=== PATIENT | male | born 1950 | race Caucasian/White ===

== ENCOUNTER 2020-01-14 08:52 | Emergency (ER) | payer MEDICARE ==
[2020-01-14] MEDS ORDERED: TETRACAINE HCL 0.5% 4ML OPTH ONE (09:22)
[2020-01-14] MEDS ORDERED: FLUORESCEIN SODIUM 1 MG/WRAP ONE (09:22)
--- NOTE | 2020-01-14 09:24 | ER ---
Nurse's Notes [facility] Name: Tam Randle Age: 69 yrs Sex: Male : 1950 Arrival Date: 01/14/2020 Time: 08:54 Bed 6 Private MD: Diagnosis: Injury of conjunctiva and corneal abrasion without foreign body, right eye-abrasion Presentation: 01/13 09:07 Chief complaint: Patient states: feels like there is something in his right eye, woke iw up feeling it. Coronavirus screen: At this time, the client does not indicate any symptoms associated with coronavirus-19. Ebola Screen: Patient negative for fever greater than or equal to 101.5 degrees Fahrenheit, and additional compatible Ebola Virus Disease symptoms Patient denies exposure to infectious person. Patient denies travel to an Ebola-affected area in the 21 days before illness onset. No symptoms or risks identified at this time. Initial Sepsis Screen: Does the patient meet any 2 criteria? No. Patient's initial sepsis screen is negative. Does the patient have a suspected source of infection? No. Patient's initial sepsis screen is negative. Risk Assessment: Do you want to hurt yourself or someone else? Patient reports no desire to harm self or others. Onset of symptoms was January 14, 2020. 09:07 Method Of Arrival: Ambulatory iw 09:07 Acuity: DRE 4 iw Historical: - Allergies: 09:09 No Known Allergies; iw - PMHx: 09:09 Hypertension; iw - PSHx: 09:09 None; iw - Immunization history:: Last tetanus immunization: up to date. - Social history:: Smoking status: Patient/guardian denies using tobacco, but has a distant history of tobacco abuse. Screenin:12 Abuse screen: Denies threats or abuse. Nutritional screening: No deficits noted. tw2 Tuberculosis screening: No symptoms or risk factors identified. Fall Risk None identified. Assessment: 09:12 General: Appears in no apparent distress. slender, well groomed, Behavior is calm, tw2 cooperative, appropriate for age. Neuro: Level of Consciousness is awake, alert, obeys commands, Oriented to person, place, time, situation. Cardiovascular: Patient's skin is warm and dry. Respiratory: Airway is patent Respiratory pattern is regular, symmetrical. EENT: Eyes are tearing on outer aspect of conjuctiva of right eye, iris of right eye and inner aspect of conjuctiva of right eye redness noted to RIGHT eye. Musculoskeletal: Range of motion: intact in all extremities. Vital Signs: 09:07 BP 158 / 83; Pulse 57; Resp 16; Temp 97.9; Pulse Ox 100% on R/A; Weight 68.95 kg; iw Height 5 ft. 11 in. (180.34 cm); 09:07 Body Mass Index 21.20 (68.95 kg, 180.34 cm) iw ED Course: 08:54 Patient arrived in ED. as 09:05 [facility] kb 09:05 Dena Shetty MD is Attending Physician. kb 09:05 Bed in low position. Call light in reach. Pulse ox on. NIBP on. tw2 09:09 Triage completed. iw 09:09 Arm band placed on. iw 09:14 Sana Sneed, ALEXUS is Primary Nurse. tw2 09:31 No provider procedures requiring assistance completed. Patient did not have IV access tw2 during this emergency room visit. Administered Medications: 09:22 Drug: Tetracaine Drops 0.5 % 1 drops {Note: by trudi Corea.} Route: Ophthalmic; Site: tw2 right eye; 09:30 Drug: Polysporin Ointment 1 application Route: Ophthalmic; Site: right eye; tw2 Outcome: 09:24 Discharge ordered by MD. kb 09:31 Discharged to home ambulatory. tw2 09:31 Condition: stable 09:31 Discharge instructions given to patient, Instructed on discharge instructions, follow up and referral plans. Demonstrated understanding of instructions, follow-up care. 09:32 Patient left the ED. tw2 Signatures: Nahomy Ybarra FNP-C FNP-Ckb Martinez, Amelia as Williams, Irene, RN RN iw Sana Sened RN RN tw2
--- NOTE | 2020-01-14 09:24 | EDPHYS ---
Physician Documentation [facility] Name: Tam Randle Age: 69 yrs Sex: Male : 1950 Arrival Date: 01/14/2020 Time: 08:54 Bed 6 Private MD: ED Physician Dena Shetty HPI: 01/13 09:53 This 69 yrs old Male presents to ER via Ambulatory with complaints of Foreign kb Body In Eye. 09:53 The patient is experiencing foreign body sensation, The patient sustained None. to the kb right eye, caused by an unknown mechanism. Onset: The symptoms/episode began/occurred this morning. Duration: the symptoms are continuous. Aggravated by nothing. Alleviated by nothing. Associated signs and symptoms: Pertinent positives: None. Severity of symptoms: At their worst the symptoms were mild in the emergency department the symptoms are unchanged. The patient has not experienced similar symptoms in the past. The patient has not recently seen a physician. Pt reports he woke up this morning and felt like something was in his right eye. Denies splash or being around debris. Historical: - Allergies: 09:09 No Known Allergies; iw - PMHx: 09:09 Hypertension; iw - PSHx: 09:09 None; iw - Immunization history:: Last tetanus immunization: up to date. - Social history:: Smoking status: Patient/guardian denies using tobacco, but has a distant history of tobacco abuse. ROS: 09:51 Constitutional: Negative for fever, chills, and weight loss, Cardiovascular: Negative kb for chest pain, palpitations, and edema, Respiratory: Negative for shortness of breath, cough, wheezing, and pleuritic chest pain, Abdomen/GI: Negative for abdominal pain, nausea, vomiting, diarrhea, and constipation, MS/Extremity: Negative for injury and deformity, Skin: Negative for injury, rash, and discoloration, Neuro: Negative for headache, weakness, numbness, tingling, and seizure. 09:51 Eyes: Positive for foreign body sensation, of the iris of right eye. Exam: 09:51 Constitutional: This is a well developed, well nourished patient who is awake, alert, kb and in no acute distress. Head/Face: Normocephalic, atraumatic. Skin: Warm, dry with normal turgor. Normal color with no rashes, no lesions, and no evidence of cellulitis. MS/ Extremity: Pulses equal, no cyanosis. Neurovascular intact. Full, normal range of motion. Neuro: Awake and alert, GCS 15, oriented to person, place, time, and situation. Cranial nerves II-XII grossly intact. Motor strength 5/5 in all extremities. Sensory grossly intact. Cerebellar exam normal. Normal gait. 09:51 Eyes: Corneas: abrasion, that is small, on the right, at 7 o'clock, foreign body, is not appreciated, a fluorescein strip employed to appreciate the findings. 09:51 Respiratory: the patient does not display signs of respiratory distress, Respirations: normal. Vital Signs: 09:07 BP 158 / 83; Pulse 57; Resp 16; Temp 97.9; Pulse Ox 100% on R/A; Weight 68.95 kg; iw Height 5 ft. 11 in. (180.34 cm); 09:07 Body Mass Index 21.20 (68.95 kg, 180.34 cm) iw MDM: 09:05 Patient medically screened. kb 09:52 Data reviewed: vital signs, nurses notes. Data interpreted: Pulse oximetry: on room air kb is 100 %. Interpretation: normal. Counseling: I had a detailed discussion with the patient and/or guardian regarding: the historical points, exam findings, and any diagnostic results supporting the discharge/admit diagnosis, the need for outpatient follow up, an opthalmologist, to return to the emergency department if symptoms worsen or persist or if there are any questions or concerns that arise at home. 01/13 09:06 Order name: Eye Tray; Complete Time: 09:09 kb 01/13 09:06 Order name: Fluoresene Opth strip; Complete Time: 09:09 kb Administered Medications: 09:22 Drug: Tetracaine Drops 0.5 % 1 drops {Note: by gregory Corea.} Route: Ophthalmic; Site: tw2 right eye; 09:30 Drug: Polysporin Ointment 1 application Route: Ophthalmic; Site: right eye; tw2 Disposition: 18:34 Co-signature as Attending Physician, Dena Shetty MD. ma2 Disposition: 01/14/20 09:24 Discharged to Home. Impression: Injury of conjunctiva and corneal abrasion without foreign body, right eye - abrasion. - Condition is Stable. - Discharge Instructions: Corneal Abrasion, [id number]. - Medication Reconciliation Form, Thank You Letter, Antibiotic Education, Prescription Opioid Use form. - Follow up: Emergency Department; When: As needed; Reason: Worsening of condition. Follow up: Private Physician; When: 2 - 3 days; Reason: Recheck today's complaints, Continuance of care, Re-evaluation by your physician. Signatures: Nahomy Ybarra, GREGORY-C COMMERCIAL INTERIOR DESIGNER-Ckb Alcira Chavez RN RN iw Sana Sneed RN RN tw2 Dena Shetty MD MD ma2 Corrections: (The following items were deleted from the chart) 09:32 09:24 01/14/2020 09:24 Discharged to Home. Impression: Injury of conjunctiva and tw2 corneal abrasion without foreign body, right eye - abrasion. Condition is Stable. Forms are Medication Reconciliation Form, Thank You Letter, Antibiotic Education, Prescription Opioid Use. Follow up: Emergency Department; When: As needed; Reason: Worsening of condition. Follow up: Private Physician; When: 2 - 3 days; Reason: Recheck today's complaints, Continuance of care, Re-evaluation by your physician. kb
[2020-01-14] MEDS ORDERED: NEOMYCIN/BAC/POLY OPTH 3.5GM ONE (09:43)
== END 2020-01-14 09:32 | disposition home or self-care (01) ==
LOC: ER 08:52
DX: S05.01XA Injury of conjunctiva and corneal abrasion without foreign body, right eye, initial encounter (principal); I10 Essential (primary) hypertension
CPT/HCPCS: 99283

== ENCOUNTER 2020-01-17 12:07 | Emergency (ER) | payer MEDICARE ==
--- NOTE | 2020-01-17 13:20 | EDPHYS ---
Physician Documentation [facility] Name: Tam Randle Age: 69 yrs Sex: Male : 1950 Arrival Date: 01/17/2020 Time: 12:08 Bed 12 Private MD: ED Physician Lewis Gar HPI: 01/16 13:16 This 69 yrs old Male presents to ER via Ambulatory with complaints of Facial jmm Swelling. 13:16 The patient's rash thought to be caused by. Onset: The symptoms/episode began/occurred jmm gradually, 1 day(s) ago. Associated signs and symptoms: Pertinent positives: Pertinent negatives: swelling of lips, swelling of throat, swelling of tongue. This is a 69 year old male with a history of htn that presents to the ED with complaints of swelling to his right cheek beginning yesterday. Patient states he has similar episodes on the opposite side of the cheek that will normally drain and resolve. . Historical: - Allergies: 12:35 No Known Allergies; em - PMHx: 12:35 Hypertension; em - PSHx: 12:35 None; em - Immunization history:: Adult Immunizations up to date. - Social history:: Smoking status: Patient denies any tobacco usage or history of. ROS: 13:16 Constitutional: Negative for fever, chills, and weight loss, Cardiovascular: Negative jmm for chest pain, palpitations, and edema, Respiratory: Negative for shortness of breath, cough, wheezing, and pleuritic chest pain. 13:16 Skin: Positive for erythema. 13:16 All other systems are negative. Exam: 13:16 Constitutional: This is a well developed, well nourished patient who is awake, alert, jmm and in no acute distress. 13:16 Neck: Trachea midline, Supple Chest/axilla: Normal chest wall appearance and motion. Cardiovascular: Regular rate and rhythm. No edema appreciated Respiratory: Normal respirations, no respiratory distress appreciated Abdomen/GI: Non distended, soft Back: Normal ROM 13:16 Skin: General appearance color normal Neuro: Awake and alert, normal gait Psych: Behavior is normal, Mood is normal, Patient is cooperative and pleasant 13:16 Head/face: right cheek erythema noted, non fluctuant. 13:16 Skin: cellulitis, that is mild, on the right zygomatic area. Vital Signs: 12:33 BP 133 / 84; Pulse 70; Resp 18; Temp 98.1; Pulse Ox 98% ; Weight 69.4 kg; Height 5 ft. em 11 in. (180.34 cm); Pain 1/10; 12:33 Body Mass Index 21.34 (69.40 kg, 180.34 cm) em MDM: 13:10 Patient medically screened. [facility] 13:19 Data reviewed: vital signs, nurses notes. Counseling: I had a detailed discussion with holden the patient and/or guardian regarding: the historical points, exam findings, and any diagnostic results supporting the discharge/admit diagnosis, the need for outpatient follow up, to return to the emergency department if symptoms worsen or persist or if there are any questions or concerns that arise at home. ED course: Patient is alert and non toxic in appearance in the ED. No signs of sepsis. Normal VS. Patient will follow up with pcp in 3 days. Patient is otherwise given strict return precautions. patient understood and agrees with the plan of care. . Administered Medications: 13:37 Drug: Bactrim (160 mg-800 mg (DS) 1 tablet Route: PO; iw Disposition: 14:11 Co-signature as Attending Physician, Lewis Gar MD I agree with the assessment and kdr plan of care. Disposition: 01/17/20 13:20 Discharged to Home. Impression: Facial Cellulitis. - Condition is Stable. - Discharge Instructions: Cellulitis, Adult. - Prescriptions for Bactrim DS 800- 160 mg Oral Tablet - take 1 tablet by ORAL route every 12 hours for 10 days; 20 tablet. Doxycycline Hyclate 100 mg Oral Tablet - take 1 tablet by ORAL route every 12 hours; 20 tablet. - Medication Reconciliation Form, Thank You Letter, Antibiotic Education, Prescription Opioid Use form. - Follow up: Private Physician; When: 2 - 3 days; Reason: Recheck today's complaints, Continuance of care, Re-evaluation by your physician. Signatures: Lewis Gar MD MD kdr Mickail, Joel, PA PA jmm Munoz, Edgar, ALEXUS RN em Alcira Chavez RN RN iw Corrections: (The following items were deleted from the chart) 13:38 13:20 01/17/2020 13:20 Discharged to Home. Impression: Facial Cellulitis. Condition is iw Stable. Forms are Medication Reconciliation Form, Thank You Letter, Antibiotic Education, Prescription Opioid Use. Follow up: Private Physician; When: 2 - 3 days; Reason: Recheck today's complaints, Continuance of care, Re-evaluation by your physician. holden
--- NOTE | 2020-01-17 13:20 | ER ---
Nurse's Notes [facility] Name: Tam Randle Age: 69 yrs Sex: Male : 1950 Arrival Date: 01/17/2020 Time: 12:08 Bed 12 Private MD: Diagnosis: Facial Cellulitis Presentation: 01/16 12:33 Chief complaint: Patient states: right sided facial swelling that started yesterday, em redness and swelling noted to the right side of face, denies fever. Coronavirus screen: Client denies travel out of the [place] in the last 14 days. Ebola Screen: Patient negative for fever greater than or equal to 101.5 degrees Fahrenheit, and additional compatible Ebola Virus Disease symptoms Patient denies exposure to infectious person. Patient denies travel to an Ebola-affected area in the 21 days before illness onset. No symptoms or risks identified at this time. Initial Sepsis Screen: Does the patient meet any 2 criteria? No. Patient's initial sepsis screen is negative. Does the patient have a suspected source of infection? No. Patient's initial sepsis screen is negative. Risk Assessment: Do you want to hurt yourself or someone else? Patient reports no desire to harm self or others. Onset of symptoms was January 17, 2020. 12:33 Method Of Arrival: Ambulatory em 12:33 Acuity: DRE 4 em Triage Assessment: 13:30 General: Appears in no apparent distress. Behavior is calm, cooperative. iw Historical: - Allergies: 12:35 No Known Allergies; em - PMHx: 12:35 Hypertension; em - PSHx: 12:35 None; em - Immunization history:: Adult Immunizations up to date. - Social history:: Smoking status: Patient denies any tobacco usage or history of. Screenin:38 Abuse screen: Denies threats or abuse. Denies injuries from another. Nutritional iw screening: No deficits noted. Tuberculosis screening: No symptoms or risk factors identified. Fall Risk None identified. Assessment: 13:00 General: Appears in no apparent distress. Behavior is calm, cooperative. Pain: iw Complains of pain in right zygomatic area. Neuro: Level of Consciousness is awake, alert, obeys commands, Oriented to person, place, time, situation, Moves all extremities. Full function. Cardiovascular: Patient's skin is warm and dry. Respiratory: Respiratory effort is even, unlabored, Respiratory pattern is regular. Derm: Skin is healthy with good turgor. Musculoskeletal: Range of motion: intact in all extremities. Vital Signs: 12:33 BP 133 / 84; Pulse 70; Resp 18; Temp 98.1; Pulse Ox 98% ; Weight 69.4 kg; Height 5 ft. em 11 in. (180.34 cm); Pain 1/10; 12:33 Body Mass Index 21.34 (69.40 kg, 180.34 cm) em ED Course: 12:08 Patient arrived in ED. ag5 12:35 Triage completed. em 12:35 Arm band placed on. em 13:00 Patient has correct armband on for positive identification. iw 13:08 Ethan Wood PA is PHCP. [facility] 13:08 Lewis Gar MD is Attending Physician. [facility] 13:23 Alcira Chavez, RN is Primary Nurse. iw 13:37 No provider procedures requiring assistance completed. Patient did not have IV access iw during this emergency room visit. Administered Medications: 13:37 Drug: Bactrim (160 mg-800 mg (DS) 1 tablet Route: PO; iw Outcome: 13:20 Discharge ordered by . [facility] 13:37 Discharged to home ambulatory. iw 13:37 Condition: good 13:37 Discharge instructions given to patient, Instructed on discharge instructions, follow up and referral plans. medication usage, Demonstrated understanding of instructions, follow-up care, medications, Prescriptions given X 1. 13:38 Patient left the ED. iw Signatures: Ethan Wood PA PA Sheldon Carcamo RN RN Alcira Chavez RN RN Jignesh Jett ag5
[2020-01-17] MEDS ORDERED: SMZ./TMP. 800/160 MG TABLET ONE (13:42)
[2020-01-22 04:43] VITALS: BP 133/84; TEMP 98.1; O2SAT 98
== END 2020-01-17 13:38 | disposition home or self-care (01) ==
LOC: ER 12:07
DX: L03.211 Cellulitis of face (principal); I10 Essential (primary) hypertension
CPT/HCPCS: 99283

== ENCOUNTER 2023-01-20 20:11 | Emergency (ER) | payer MEDICARE ==
--- OUTSIDE RECORDS SUMMARY | 2023-01-20 20:15 | XMS REPORT | Continuity of Care Document ---
Author Name Unknown Address [address] [facility] [address] [place] [address] [facility] Address [address] [facility] [address] [place] [address] Care Team Providers Care Parts Back Counter Man Name Role Phone PCP, PATIENT DOES NOT HAVE A Primary Care Physic sage Unavailable JACKY CADET Attending Clinician Unavailable SAMANTA DIAS Attending Clinician UnavailFLAKITO Newotn Attending Clinician Unavail able Samanta Dias PA-C Attending Clinician [phone] Jacky Cadet PA-C Attending Clinician [phone] Leigh Ann BERRY MD, Lee R Attending Clinician [phone] GARY BELTRÁN III Attending Clinician Unaluis corey Doctor Unassigned, [place] Attending Clinician U Flakito Henderson Attending Clinician + [phone], [facility] Attending Clinician Unavailable GIACOMO COX Attending Clinician Unavail able Nurse, Adc Pob Immunization Attending Clinician Unavailable Giacomo Cox DO Attending Clinician [phone] REGGIE MOSQUEDA Attending Clinician Unavailable REGGIE MOSQUEDA Attending Clinician Unavailable [facility] Attending Clinician Unavailable KIMMIE NEWTON Attending Clinician Unavailable Reggie Mosqueda MD Attending Clinician [phone] Payers Payer Name Policy Type Policy Number Effective Date Expirati on Date Source [employer] MED[employer]AGE [id number] 2019 00:00:00 Problems Condition Name Condition Details Condition Category Status Onset Date Resolution Date Last Treatment Date Treating Clinician Comments Source Head and neck cancer Head and neck cancer Disease Active 2017-02 2-04 00:00: 00 [facility] Hemoptysis Hemoptysis Disease Active 08-24 00:00: 00 Overview: Formattin g of this note might be different from the original. Added automatic ally from request for surgery [id number] [facility] Allergies, Adverse Reactions, Alerts Allergy Name Allergy Type Status Severity Reaction(s) Onset Date Inactive Date Treating Clinician Comments Source NO KNOWN ALLERGIE S Drug Class Active [facility] Social History Social Habit Start Date Stop Date Quantity Comments Source History of tobacco use Chews Tobacco [facility] Alcohol intake 2022-05-03 00:00:00 2022-05-03 00:00:00 5 /d [facility] Exposure to SARS-CoV-2 (event) 2022-02-25 00:00:00 2022-03-07 09:19:00 Not sure [facility] Tobacco use and exposure 2021-08-17 00:00:00 2021-08-17 00:00:00 Smokeless tobacco non-user [facility] Cigarettes smoked current (pack per day) - Reported 2021-08-17 00:00:00 2021-08-17 00:00:00 [facility] Cigarette pack-years 2021-08-17 00:00:00 2021-08-17 00:00:00 [facility] Sex Assigned At 1950 00:00:00 1950 00:00:00 [facility] Smoking Status Start Date Stop Date Source Ex-smoker 2021-08-17 00:00:00 2021-08-17 00[facility]00[facility]00 [facility]ations Ordered Medication Name Filled Medication Name Start Date Stop Date Current Medication? Ordering Clinician Indication Dosage Frequency Signature (SIG) Comments Components Source aspirin 81 mg chewable tablet 03-01 10:04: 43 Yes 81mg Take 81 mg by mouth daily. [facility] foLIC acid 1 mg tablet 03-01 10:04: 43 Yes 2mg Take 2 mg by mouth daily. [facility] Levothyroxi ne 25 mcg capsule 03-01 10:04: 43 Yes 25ug Take 25 mcg by mouth in the morning. [facility] aspirin 81 mg chewable tablet 03-01 10:04: 43 Yes 81mg Take 81 mg by mouth daily. [facility] foLIC acid 1 mg tablet 03-01 10:04: 43 Yes 2mg Take 2 mg by mouth daily. [facility] Levothyroxi ne 25 mcg capsule 03-01 10:04: 43 Yes 25ug Take 25 mcg by mouth in the morning. [facility] aspirin 81 mg chewable tablet 03-01 10:04: 43 Yes 81mg Take 81 mg by mouth daily. [facility] foLIC acid 1 mg tablet 03-01 10:04: 43 Yes 2mg Take 2 mg by mouth daily. [facility] Levothyroxi ne 25 mcg capsule 03-01 10:04: 43 Yes 25ug Take 25 mcg by mouth in the morning. [facility] aspirin 81 mg chewable tablet 03-01 10:04: 43 Yes 81mg Take 81 mg by mouth daily. [facility] foLIC acid 1 mg tablet 03-01 10:04: 43 Yes 2mg Take 2 mg by mouth daily. [facility] Levothyroxi ne 25 mcg capsule 03-01 10:04: 43 Yes 25ug Take 25 mcg by mouth in the morning. [facility] aspirin 81 mg chewable tablet 03-01 10:04: 43 Yes 81mg Take 81 mg by mouth daily. [facility] foLIC acid 1 mg tablet 03-01 10:04: 43 Yes 2mg Take 2 mg by mouth daily. [facility] Levothyroxi ne 25 mcg capsule 03-01 10:04: 43 Yes 25ug Take 25 mcg by mouth in the morning. [facility] aspirin 81 mg chewable tablet 0 03-01 10:04: 43 Yes 81mg Take 81 mg by mouth daily. [facility] foLIC acid 1 mg tablet 03-01 10:04: 43 Yes 2mg Take 2 mg by mouth daily. [facility] Levothyroxi ne 25 mcg capsule 03-01 10:04: 43 Yes 25ug Take 25 mcg by mouth in the morning. [facility] aspirin 81 mg chewable tablet 0 03-01 10:04: 43 Yes 81mg Take 81 mg by mouth daily. [facility] foLIC acid 1 mg tablet 03-01 10:04: 43 Yes 2mg Take 2 mg by mouth daily. [facility] Levothyroxi ne 25 mcg capsule 03-01 10:04: 43 Yes 25ug Take 25 mcg by mouth in the morning. [facility] aspirin 81 mg chewable tablet 03-01 10:04: 43 Yes 81mg Take 81 mg by mouth daily. [facility] foLIC acid 1 mg tablet 03-01 10:04: 43 Yes 2mg Take 2 mg by mouth daily. [facility] Levothyroxi ne 25 mcg capsule 03-01 10:04: 43 Yes 25ug Take 25 mcg by mouth in the morning. [facility] aspirin 81 mg chewable tablet 0 10-19 08:41: 18 Yes 81mg Take 81 mg by mouth daily. [facility] foLIC acid 1 mg tablet 2021-0 10-19 08:41: 18 Yes 2mg Take 2 mg by mouth daily. [facility] aspirin 81 mg chewable tablet 2021-0 10-19 08:41: 18 Yes 81mg Take 81 mg by mouth daily. [facility] foLIC acid 1 mg tablet 2021-0 10-19 08:41: 18 Yes 2mg Take 2 mg by mouth daily. [facility] aspirin 81 mg chewable tablet 2021-0 10-19 08:41: 18 Yes 81mg Take 81 mg by mouth daily. [facility] foLIC acid 1 mg tablet 2021-0 10-19 08:41: 18 Yes 2mg Take 2 mg by mouth daily. [facility] telmisartan 20 mg tablet 2018-02 00:00: 00 Yes TK 1 T PO ONCE D [facility] telmisartan 20 mg tablet 2018-02 00:00: 00 Yes TK 1 T PO ONCE D [facility] telmisartan 20 mg tablet 2018-02 00:00: 00 Yes TK 1 T PO ONCE D [facility] telmisartan 20 mg tablet 2018-02 00:00: 00 Yes TK 1 T PO ONCE D [facility] telmisartan 20 mg tablet 2018-02 00:00: 00 Yes TK 1 T PO ONCE D [facility] telmisartan 20 mg tablet 2018-02 00:00: 00 Yes TK 1 T PO ONCE D [facility] telmisartan 20 mg tablet 2018-02 00:00: 00 Yes TK 1 T PO ONCE D [facility] telmisartan 20 mg tablet 2018-02 00:00: 00 Yes TK 1 T PO ONCE D [facility] telmisartan 20 mg tablet 2018-02 00:00: 00 Yes TK 1 T PO ONCE D [facility] telmisartan 20 mg tablet 2018-02 00:00: 00 Yes TK 1 T PO ONCE D [facility] telmisartan 20 mg tablet 2018-02 00:00: 00 Yes TK 1 T PO ONCE D [facility] Vital Signs Vital Name Observation Time Observation Value Comments S ourisaias Systolic blood pressure 2022-05-03 14:55:00 118 mm[Hg] [facility] Diastolic blood pressure 2022-05-03 14:55:00 73 mm[Hg] [facility] Heart rate 2022-05-03 14:55:00 70 /min [facility] Body height 2022-05-03 14:55:00 180.3 cm [facility] Body weight 2022-05-03 14:55:00 79.47 kg [facility] BMI 2022-05-03 14:55:00 24.44 kg/m2 [facility] Oxygen saturation in Arterial blood by Pulse oximetry 2022-05-03 14:55:00 98 /min [facility] Systolic blood pressure 2022-03-07 15:10:00 138 mm[Hg] [facility] Diastolic blood pressure 2022-03-07 15:10:00 75 mm[Hg] [facility] Heart rate 2022-03-07 15:10:00 66 /min [facility] Body temperature 2022-03-07 15:10:00 36 Anum [facility] Respiratory rate 2022-03-07 15:10:00 18 /min [facility] Body weight 2022-03-07 15:10:00 78.881 kg [facility] BMI 2022-03-07 15:10:00 24.25 kg/m2 [facility] Oxygen saturation in Arterial blood by Pulse oximetry 2022-03-07 15:10:00 100 /min [facility] Systolic blood pressure 2022-03-01 16:04:00 125 mm[Hg] [facility] Diastolic blood pressure 2022-03-01 16:04:00 71 mm[Hg] [facility] Heart rate 2022-03-01 16:04:00 77 /min [facility] Body temperature 2022-03-01 16:04:00 35.83 Anum [facility] Respiratory rate 2022-03-01 16:04:00 18 /min [facility] Body height 2022-03-01 16:04:00 180.3 cm [facility] Body weight 2022-03-01 16:04:00 79.198 kg [facility] BMI 2022-03-01 16:04:00 24.35 kg/m2 [facility] Oxygen saturation in Arterial blood by Pulse oximetry 2022-03-01 16:04:00 99 /min [facility] Systolic blood pressure 2021-10-19 13:40:00 123 mm[Hg] [facility] Diastolic blood pressure 2021-10-19 13:40:00 67 mm[Hg] [place] [facility] Heart rate 2021-10-19 13:40:00 79 /min [facility] Body temperature 2021-10-19 13:40:00 36.56 Anum [facility] Body height 2021-10-19 13:40:00 180.3 cm [facility] Body weight 2021-10-19 13:40:00 76.567 kg [facility] BMI 2021-10-19 13:40:00 23.54 kg/m2 [facility] Oxygen saturation in Arterial blood by Pulse oximetry 2021-10-19 13:40:00 99 /min [place] [facility] Procedures Procedure Date / Time Performed Performing Clinicia n Source [facility] 2022-05-03 00:00:00 Jacky Cadet [facility] CONSENT/REFUSAL FOR DIAGNOSIS AND TREATMENT 2022-03-07 15:07:46 Doctor Unassigned, [place] [facility] 2021-10-19 00:00:00 Jacky Cadet [facility] Encounters Start Date/Time End Date/Time Encounter Type Admission Type Attending Clinicians Care Facility Care Department Encounter ID Source 2022-11-29 10:00:00 2022-11-29 10:00:00 Outpatient JACKY LEONARD [facility] [id number] [facility] 2022-09-13 09:30:00 2022-09-13 09:30:00 Outpatient SAMANTA NELSON [facility] [id number] [facility] 2022-09-12 10:30:00 2022-09-12 10:30:00 Outpatient SAMANTA NELSON [facility] [id number] [facility] 2022-07-13 00:00:00 2022-07-13 00:00:00 Case Management Samanta Dias [facility] 1.2.840.114 350.1.13.10 4.2.7.2.686 [id number] [facility] 2022-05-03 10:45:00 2022-05-03 11:00:00 Office Visit Jacky Cadet [facility] 1.840.114 350.1.13.10 4.2.7.2.686 [id number] [facility] 2022-05-03 10:45:00 2022-05-03 10:45:00 Outpatient R JACKY CADET [facility] [id number] [facility] 2022-03-07 09:00:00 2022-03-07 09:30:00 Office Visit Gary Beltrán [facility] 1.840.114 350.1.13.10 4.2.7.2.686 [id number] [facility] 2022-03-07 09:00:00 2022-03-07 09:00:00 Outpatient GARY MARI III [facility] [id number] [facility] 2022-03-07 00:00:00 2022-03-07 00:00:00 Orders Only Doctor Unassigned, [place] [facility] 1.840.114 350.1.13.10 4.2.7.2.686 [id number] [facility] 2022-03-01 10:30:00 2022-03-01 10:30:00 Office Visit Flakito Hilario [facility] 1..840.114 350.1.13.10 4.2.7.2.686 [id number] [facility] 2022-03-01 10:30:00 2022-03-01 09:55:41 Outpatient R FLAKITO HILARIO [facility] [id number] [facility] 2022-02-16 10:00:00 2022-02-16 10:15:00 Devulcanizer Operator Visit 2, [facility] Flakito Hilario [facility] 1.840.114 350.1.13.10 4.2.7.2.686 [id number] [facility] 2022-02-16 10:00:00 2022-02-16 10:00:00 Outpatient FLAKITO ADRIAN [facility] [id number] [facility] 2021-10-19 09:15:00 2021-10-19 09:30:00 [facility] 1.840.114 350.1.13.10 4.2.7.2.686 [id number] [facility] 2021-10-19 09:15:00 2021-10-19 09:15:00 Outpatient Brian CADETJACKY [facility] [id number] [facility] 2021-08-17 10:30:00 2021-08-17 11:30:00 Office Visit Flakito Hilario [facility] 1.840.114 350.1.13.10 4.2.7.2.686 [id number] [facility] 2021-08-17 10:30:00 2021-08-17 10:30:00 Outpatient FLAKITO ADRIAN [facility] [id number] [facility] 2021-08-10 13:30:00 2021-08-10 13:45:00 Devulcanizer Operator Visit 2, Adc Lab Flakito Hilario [facility] 1.840.114 350.1.13.10 4.2.7.2.686 [id number] [facility] 2021-08-10 13:30:00 2021-08-10 13:30:00 Outpatient FLAKITO ADRIAN [facility] [id number] [facility] 2021-03-16 09:15:00 2021-03-16 09:30:00 Office Visit Helio Rabun [facility] 1.840.114 350.1.13.10 4.2.7.2.686 [id number] [facility] 2021-03-16 09:15:00 2021-03-16 09:15:00 Outpatient R JACKY CADET [facility] [id number] [facility] 2021-03-16 09:15:00 2021-03-16 09:15:00 Outpatient R JACKY CADET [facility] [id number] [facility] 2021-03-08 10:00:00 2021-03-08 10:05:03 Outpatient R LEIGH ANN JAMAL GARY [facility] [id number] [facility] 2021-03-08 10:00:00 2021-03-08 10:05:03 Office Visit Gary Beltrán [facility] 1.2.840.114 350.1.13.10 4.2.7.2.686 [id number] [facility] 2021-03-08 10:00:00 2021-03-08 10:05:03 Office Visit Gary Beltrán [facility] 1.2.840.114 350.1.13.10 4.2.7.2.686 [id number] [facility] 2021-03-08 10:00:00 2021-03-08 10:05:03 Outpatient R LEIGH ANN BERRY GARY [facility] [id number] [facility] 2021-02-16 10:30:00 2021-02-16 10:30:00 Outpatient FLAKITO ADRIAN [facility] [id number] [facility] 2021-02-16 10:30:00 2021-02-16 10:30:00 Office Visit Flakito Hilario [facility] 1.2.840.114 350.1.13.10 4.2.7.2.686 [id number] [facility] 2021-02-16 10:30:00 2021-02-16 10:10:39 Outpatient R ROHINI, FLAKITO [facility] [id number] [facility] 2021-02-09 08:45:00 2021-02-09 10:39:04 Devulcanizer Operator Visit 2, Gilma R[facility] 1.840.114 350.1.13.10 4.2.7.2.686 [id number] [facility] 2021-02-09 08:45:00 2021-02-09 08:45:00 Outpatient FLAKITO ADRIAN [facility] [id number] [facility] 2021-01-06 15:00:00 2021-01-06 15:00:00 Outpatient GIACOMO CONNELL [facility] [id number] [facility] 2021-01-06 12:57:07 2021-01-06 12:57:22 Imm/Inj Visit Nurse, Gilma Pob Immunizatio Giacomo Moore [facility] 1.84.114 350.1.13.10 4.2.7.2.686 [id number] [facility] 2020-11-10 09:15:00 2020-11-10 09:15:00 Outpatient JACKY LEONARD [facility] [id number] [facility] 2020-11-10 08:43:55 2020-11-10 08:58:55 Office Visit Jacky Cadet [facility] 1..114 350.1.13.10 4.2.7.2.686 [id number] [facility] 2020-11-10 00:00:00 2020-11-10 00:00:00 Orders Only Doctor Unassigned, [place] [facility] 1..114 350.1.13.10 4.2.7.2.686 [id number] [facility] 2020-08-25 11:30:00 2020-08-25 11:30:00 Outpatient REGGIE MCDERMOTT [facility] [id number] [facility] 2020-08-19 13:37:22 2020-08-19 13:52:22 Devulcanizer Operator Visit [facility] Flakito Hilario [facility] 1..840.114 350.1.13.10 4.2.7.2.686 [id number] [facility] 2020-08-19 12:17:32 2020-08-19 13:17:32 [facility] 1..840.114 350.1.13.10 4.2.7.2.686 [id number] [facility] 2020-08-19 13:00:00 2020-08-19 13:00:00 Outpatient FLAKITO ADRIAN [facility] [id number] [facility] 2020-07-07 10:00:00 2020-07-07 10:00:00 Outpatient JACKY LEONARD [facility] [id number] [facility] 2020-07-07 09:18:03 2020-07-07 09:33:03 Office Visit Jacky Cadet [facility] 1..840.114 350.1.13.10 4.2.7.2.686 [id number] [facility] 2020-04-01 12:00:00 2020-04-01 12:00:00 Outpatient KIMMIE MICHEL [facility] [id number] [facility] 2020-03-04 12:50:00 2020-03-04 12:50:00 Outpatient KIMMIE MICHEL [facility] [id number] [facility] 2020-03-03 09:15:00 2020-03-03 09:15:00 Outpatient JACKY LEONARD [facility] [id number] [facility] 2020-03-03 08:39:20 2020-03-03 08:54:20 Office Visit Jacky Cadet [facility] 1.2.840.114 350.1.13.10 4.2.7.2.686 [id number] [facility] 2020-02-25 13:33:44 2020-02-25 14:12:41 Office Visit Reggie Mosqueda [facility] 1.2840.114 350.1.13.10 4.2.7.2.686 [id number] [facility] 2020-02-25 13:40:00 2020-02-25 13:40:00 Outpatient R REGGIE MOSQUEDA [facility] [id number] [facility] 2020-02-17 09:07:26 2020-02-17 11:21:00 Office Visit Gary Beltrán [facility] 1.2840.114 350.1.13.10 4.2.7.2.686 [id number] [facility] 2020-02-17 09:52:45 2020-02-17 10:07:45 Devulcanizer Operator Visit [facility] Gary Beltrán [facility] 1.20.114 350.1.13.10 4.2.7.2.686 [id number] [facility] 2020-02-17 09:30:00 2020-02-17 09:30:00 Outpatient GARY MARI III [facility] [id number] [facility] 2019-11-05 08:40:41 2019-11-05 14:58:19 Office Visit Jacky Cadet [facility] 1.2.840.114 350.1.13.10 4.2.7.2.686 [id number] [facility] 2019-11-05 09:15:00 2019-11-05 09:15:00 Outpatient JACKY LEONARD [facility] [id number] [facility] 2019-07-30 08:35:02 2019-11-05 09:12:32 Office Visit Jacky Cadet [facility] 1.2.840.114 350.1.13.10 4.2.7.2.686 [id number] [facility] 2019-11-05 00:00:00 2019-11-05 00:00:00 Orders Only Doctor Unassigned, [place] [facility] 1.2.840.114 350.1.13.10 4.2.7.2.686 [id number] [facility] 2019-08-26 00:00:00 2019-08-26 00:00:00 Telephone Reggie Mosqueda [facility] 1.2.840.114 350.1.13.10 4.2.7.2.686 [id number] [facility] 2019-08-20 15:00:00 2019-08-20 15:00:00 Outpatient REGGIE MCDERMOTT [facility] [id number] [facility] 2019-08-20 14:00:18 2019-08-20 14:20:18 Telemedici ne Visit Reggie Mosqueda [facility] 1.2.840.114 350.1.13.10 4.2.7.2.686 [id number] [facility] 2019-07-30 14:00:00 2019-07-30 14:00:00 Outpatient REGGIE MCDERMOTT [facility] [id number] [facility] 2019-07-30 09:30:00 2019-07-30 09:30:00 Outpatient JACKY LEONARD [facility] [id number] [facility] 2019-05-01 09:15:00 2019-05-01 09:15:00 Outpatient JACKY LEONARD [facility] [id number] [facility] 2019-05-01 07:11:39 2019-05-01 07:26:39 Telemedici ne Visit Jacky Cadet [facility] 1.2.840.114 350.1.13.10 4.2.7.2.686 [id number] [facility] 2019-04-24 08:34:00 2019-04-24 23:59:00 Hospital Encounter Helio [facility] 1.2.840.114 350.1.13.10 4.2.7.2.686 [id number] [facility] 2019-04-24 08:33:00 2019-04-24 08:33:00 Hospital Encounter Helio [facility] 1.2840.114 350.1.13.10 4.2.7.2.686 [id number] [facility] 2019-04-24 00:00:00 2019-04-24 00:00:00 Outpatient R JACKY CADET [facility] [id number] [facility] 2019-02-18 13:23:33 2019-03-07 07:38:05 Office Visit Gary Beltrán [facility] 1.840.114 350.1.13.10 4.2.7.2.686 [id number] [facility] 2019-02-18 00:00:00 2019-02-18 00:00:00 Orders Only Doctor Unassigned, [place] [facility] 1.2840.114 350.1.13.10 4.2.7.2.686 [id number] [facility]
--- NOTE | 2023-01-20 22:10 | RAD REPORT ---
EXAM DESCRIPTION: CT - Head C Spine Mpr Wo Con - 01/20/2023 9:43 pm CLINICAL HISTORY: Head and neck injury status post fall. Head and neck pain COMPARISON: None. TECHNIQUE: Computed axial tomography of the head and cervical spine was obtained. Sagittal and coronal reconstruction was performed. All CT scans are performed using dose optimization technique as appropriate and may include automated exposure control or mA/KV adjustment according to patient size. FINDINGS: Left frontal and left occipital scalp hematomas. An intracranial bleed is not seen. The ventricles are normal in caliber. Mild low-density periventricular, deep and subcortical white matter likely ischemic changes secondary to small vessel disease An extra-axial fluid collection is not noted. Fluid within the visualized sinuses and mastoids is not seen Mild posterior subluxation C3 on C4. Mild posterior subluxation C5 on C6. Spondylosis involves the ce rvical spine A cervical fracture is not visualized. No dislocation is noted. IMPRESSION: No acute intracranial abnormality is seen. A cervical fracture is not visualized. If the patient continues to have symptoms to suggest intracranial /spinal cord pathology then MRI wou ld be recommended
[2023-01-20] MEDS ORDERED: TDAP (DIPHTH,PERTUSS(ACELL),TET VAC) 0.5 ML VIAL IMVAC ONE (23:02)
[2023-01-20] MEDS ORDERED: LIDOCAINE 2% W/EPI 1:200,000 MPF 20 ML VIAL IM ONE (23:26)
--- NOTE | 2023-01-20 23:59 | ER ---
Nurse's Notes [facility] Name: Tam Randle Age: 72 yrs Sex: Male : 1950 Arrival Date: 01/20/2023 Time: 20:11 Bed 18 Private MD: Diagnosis: Fall on same level, unspecified;Laceration without foreign body of scalp Presentation: 01/20 20:13 Chief complaint: EMS states: "toned out for hitting head on table. Pt has mb9 contusion/laceration above left eye and left occipital lobe. No active bleeding noted. Pt denies LOC and takes 81 mg of Aspirin.". Coronavirus screen: At this time, the client does not indicate any symptoms associated with coronavirus-19. Ebola Screen: No symptoms or risks identified at this time. Initial Sepsis Screen: Does the patient meet any 2 criteria? No. Patient's initial sepsis screen is negative. Does the patient have a suspected source of infection? No. Patient's initial sepsis screen is negative. Risk Assessment: Do you want to hurt yourself or someone else? Patient reports no desire to harm self or others. Onset of symptoms was January 20, 2023. 20:13 Method Of Arrival: Ambulatory mb9 20:13 Acuity: DRE 3 mb9 Triage Assessment: 20:19 General: Appears in no apparent distress. Behavior is calm, cooperative. Pain: Denies mb9 pain. EENT: No deficits noted. Neuro: [place] Agitation-Sedation Scale (RASS): 0 - Alert and Calm Level of Consciousness is awake, alert, obeys commands, Oriented to person, place, time, situation, Appropriate for age Pupils are PERRLA. Cardiovascular: Patient's skin is warm and dry. Respiratory: Airway is patent Respiratory effort is even, unlabored, Respiratory pattern is regular, symmetrical. GI: Abdomen is flat, non-distended, Bowel sounds present X 4 quads. Abd is soft and non tender X 4 quads. : No signs and/or symptoms were reported regarding the genitourinary system. Derm: Bruising that is dark purple, on face. Musculoskeletal: Range of motion: intact in all extremities. Historical: - Allergies: 20:16 No Known Allergies; mb9 - Home Meds: 20:16 aspirin 81 mg oral capsule [Active]; mb9 - PMHx: 20:16 Hypertension; mb9 - PSHx: 20:16 None; mb9 - Immunization history:: Adult Immunizations up to date. - Social history:: Smoking status: Patient denies any tobacco usage or history of. Screenin:20 [facility] ED Fall Risk Assessment (Adult) History of falling in the last 3 months, mb9 including since admission Yes- single mechanical fall (1 pt) Confusion or Disorientation No (0 pts) Intoxicated or Sedated No (0 pts) Impaired Gait No (0 pts) Mobility Assist Device Used No (0 pt) Altered Elimination No (0 pt) Score/Fall Risk Level 0 - 2 = Low Risk Oriented to surroundings, Maintained a safe environment, Educated pt \\T\\ family on fall prevention, incl call for assistance when getting out of bed. Abuse screen: Denies threats or abuse. Nutritional screening: No deficits noted. Tuberculosis screening: No symptoms or risk factors identified. Assessment: 20:19 Reassessment: see triage assessment. mb9 21:00 Reassessment: No changes from previously documented assessment. Patient and/or family vc1 updated on plan of care and expected duration. Pain level reassessed. Patient is alert, oriented x 3, equal unlabored respirations, skin warm/dry/pink. 22:00 Reassessment: No changes from previously documented assessment. Patient and/or family vc1 updated on plan of care and expected duration. Pain level reassessed. Patient is alert, oriented x 3, equal unlabored respirations, skin warm/dry/pink. PT states he's ready to go. 22:57 General: family [phone]. as6 Vital Signs: 20:18 BP 157 / 106; Pulse 75; Resp 18; Temp 98; Pulse Ox 100% ; Weight 79.38 kg; Height 5 ft. mb9 11 in. ; Pain 0/10; 21:15 BP 106 / 106; Pulse 66; Resp 18; Pulse Ox 100% ; vc1 22:00 BP 163 / 97; Pulse 67; Resp 18; Pulse Ox 100% ; vc1 20:18 Body Mass Index 24.41 (79.38 kg, 180.34 cm) mb9 20:18 Pain Scale: Adult mb9 [place] Coma Score: 22:00 Eye Response: spontaneous(4). Motor Response: obeys commands(6). Verbal Response: cp oriented(5). Total: 15. ED Course: 20:13 Patient arrived in ED. mb9 20:16 Triage completed. mb9 20:16 Arm band placed on. mb9 20:18 Abbe Addison PA is PHCP. cp 20:18 Newton Cohen MD is Attending Physician. cp 20:20 Bed in low position. Call light in reach. Side rails up X 1. Client placed on mb9 continuous cardiac and pulse oximetry monitoring. NIBP monitoring applied. 20:20 Inserted saline lock: 20 gauge in left forearm, using aseptic technique. mb9 20:30 Azucena Harris, ALEXUS is Primary Nurse. mb9 21:45 Head C Spine Mpr Wo Con In Process Unspecified. EDMS 01/21 00:23 IV discontinued, intact, bleeding controlled, No redness/swelling at site. Pressure vc1 dressing applied. 00:26 Provided Education on: come back in one week for removal of kathi. vc1 00:27 Assist provider with laceration repair on left parietal area, right parietal area and vc1 occipital area that was between 2.6 to 7.5 cm using kathi. Set up tray. Performed by Abbe MARINO Patient tolerated well. Administered Medications: 01/20 23:08 Not Given (Product Out of Stock): tetanus-diphtheria toxoidadult 0.5 ml IM once; vc1 Provide Vaccine Information Statement (VIS). 23:08 Drug: Boostrix Tdap IM 0.5 ml IM once; as a single dose Route: IM; Site: right deltoid; vc1 Medication: 20:20 VIS not applicable for this client. mb9 Outcome: 23:59 Discharge ordered by . cp 01/21 00:22 Discharged to home ambulatory, with significant other, vc1 Condition: good Discharge instructions given to patient, significant other, Instructed on discharge instructions, follow up and referral plans. Demonstrated understanding of instructions, follow-up care, 00:27 Patient left the ED. vc1 Signatures: Dispatcher [employer] EDMS Abbe Addison PA PA cp Slawson, Ashby, RN RN as6 Elizabeth Waters RN RN vc1 Azucena Harris RN RN mb9 Corrections: (The following items were deleted from the chart) 01/20 21:00 20:18 Pulse 75bpm; Resp 18bpm; Pulse Ox 100%; Temp 98F; 79.38 kg; Height 5 ft. 11 in.; mb9 BMI: 24.4; Pain 0/10, Adult; mb9 01/21 00:27 01/20 20:20 No provider procedures requiring assistance completed. mb9 vc1
--- NOTE | 2023-01-20 23:59 | EDPHYS ---
Physician Documentation [facility] Name: Tam Randle Age: 72 yrs Sex: Male : 1950 Arrival Date: 01/20/2023 Time: 20:11 Bed 18 Private MD: ED Physician Newton Cohen HPI: 01/20 22:00 This 72 yrs old Male presents to ER via Ambulatory with complaints of Head Injury from cp Fall. 22:00 admits to drinking alcohol and losing balance causing fall. cp 22:00 The patient or guardian reports injury, a laceration. The complaints affect the cp occipital area and right parietal area and left parietal area. Context of injury: resulted from a fall, while walking. Onset: The symptoms/episode began/occurred just prior to arrival. Associated signs and symptoms: Loss of consciousness: This patient did not experience any loss of consciousness. Historical: - Allergies: 20:16 No Known Allergies; mb9 - Home Meds: 20:16 aspirin 81 mg oral capsule [Active]; mb9 - PMHx: 20:16 Hypertension; mb9 - PSHx: 20:16 None; mb9 - Immunization history:: Adult Immunizations up to date. - Social history:: Smoking status: Patient denies any tobacco usage or history of. ROS: 22:05 Neuro: Negative for altered mental status, loss of consciousness, weakness, cp 22:05 Eyes: Negative for injury, pain, redness, and discharge, cp 22:05 Constitutional: Negative for fever, poor PO intake, 22:05 Neck: Negative for pain with movement, pain at rest, stiffness, 22:05 Cardiovascular: Negative for chest pain, palpitations, 22:05 Respiratory: Negative for cough, shortness of breath, wheezing, 22:05 Abdomen/GI: Negative for abdominal pain, nausea, vomiting, and diarrhea, 22:05 Back: Negative for pain at rest, pain with movement, 22:05 MS/extremity: Negative for injury or acute deformity, decreased range of motion, 22:05 All other systems are negative, Exam: 22:10 Constitutional: The patient appears in no acute distress, alert, awake, non-toxic, well cp developed, well nourished, 22:10 Head/face: Noted is bandage in place around scalp with bloody drainage. Sinus cp tenderness, is not appreciated, 22:10 Eyes: Periorbital structures: appear normal, Pupils: equal, round, and reactive to light and accomodation, Extraocular movements: intact throughout, Conjunctiva: normal, no exudate, no injection, Lids and lashes: appear normal, bilaterally, 22:10 ENT: External ear(s): are unremarkable, Ear canal(s): are normal, TM's: dullness, bilaterally, Nose: is normal, Mouth: Lips: moist, Oral mucosa: moist, Posterior pharynx: Airway: no evidence of obstruction, patent, 22:10 Neck: C-spine: C-collar placed in ED, vertebral tenderness, is not appreciated, crepitus, is not appreciated, 22:10 Chest/axilla: Inspection: normal, Palpation: is normal, no crepitus, no tenderness, 22:10 Cardiovascular: Rate: normal, Rhythm: regular, 22:10 Respiratory: the patient does not display signs of respiratory distress, Respirations: normal, no use of accessory muscles, no retractions, labored breathing, is not present, Breath sounds: are clear throughout, no decreased breath sounds, no stridor, no wheezing, 22:10 Abdomen/GI: Inspection: abdomen appears normal, Palpation: abdomen is soft and non-tender, in all quadrants, 22:10 Back: vertebral tenderness, is not appreciated, 22:10 Musculoskeletal/extremity: Extremities: all appear grossly normal, with no appreciated pain with palpation, 22:10 Neuro: Orientation: to person, place \T\ time. Mentation: able to follow commands, Motor: moves all fours, strength is normal, Sensation: no obvious gross deficits, Vital Signs: 20:18 BP 157 / 106; Pulse 75; Resp 18; Temp 98; Pulse Ox 100% ; Weight 79.38 kg; Height 5 ft. mb9 11 in. ; Pain 0/10; 21:15 BP 106 / 106; Pulse 66; Resp 18; Pulse Ox 100% ; vc1 22:00 BP 163 / 97; Pulse 67; Resp 18; Pulse Ox 100% ; vc1 20:18 Body Mass Index 24.41 (79.38 kg, 180.34 cm) mb9 20:18 Pain Scale: Adult mb9 [place] Coma Score: 22:00 Eye Response: spontaneous(4). Motor Response: obeys commands(6). Verbal Response: cp oriented(5). Total: 15. Laceration: 23:55 Wound Repair of 14cm ( 5.5in ) multiple laceration to left parietal area. Linear cp shaped.. Distal neuro/vascular/tendon intact. Anesthesia: Wound infiltrated with 8 mls of 2% lidocaine. Wound prep: Moderate cleansing by nurse. Skin closed with 12 1-0 Chava using staple gun. Dressed with Bacitracin. Patient tolerated well. 23:55 Wound Repair of 15cm ( 5.9in ) multiple laceration to right parietal area. Linear cp shaped.. Distal neuro/vascular/tendon intact. Anesthesia: Local anesthetic administered with 8 mls of 2% lidocaine. Wound prep: Moderate cleansing by nurse. Skin closed with 13 Chava using staple gun. Dressed with Bacitracin, 4x4's, Kerlix. Patient tolerated well. MDM: 20:18 Patient medically screened. cp 23:59 Data reviewed: vital signs, nurses notes, radiologic studies, CT scan. cp 23:59 Differential diagnosis: Contusion of Hematoma on Laceration of Intracranial bleed- cp Concussion cerebral contusion. Consideration of Admission/Observation Escalation of care including admission/observation considered. Care significantly affected by the following chronic conditions: Hypertension. Counseling: I had a detailed discussion with the patient and/or guardian regarding the historical points, exam findings, and any diagnostic results supporting the discharge/admit diagnosis, radiology results, the need for outpatient follow up, a family practitioner, to return to the emergency department if symptoms worsen or persist or if there are any questions or concerns that arise at home. Response to treatment: the patient's symptoms have markedly improved after treatment, and as a result, I will discharge patient. Special discussion: Based on the patient's history, exam and DX evaluation, there is no indication for emergent intervention or inpatient TX. It is understood by the patient/guardian that if the SXs persist or worsen they need to return immediately for re-evaluation. 01/20 21:25 Order name: Head C Spine Mpr Wo Con; Complete Time: 23:58 EDMS 01/20 23:58 Interpretation: Report reviewed. cp 01/20 22:58 Order name: Wound Care; Complete Time: 23:48 cp Administered Medications: 23:08 Not Given (Product Out of Stock): tetanus-diphtheria toxoidadult 0.5 ml IM once; vc1 Provide Vaccine Information Statement (VIS). 23:08 Drug: Boostrix Tdap IM 0.5 ml IM once; as a single dose Route: IM; Site: right deltoid; vc1 Disposition Summary: 01/20/23 23:59 Discharge Ordered Notes: Location: Home cp Problem: new cp Symptoms: have improved cp Condition: Stable cp Diagnosis - Fall on same level, unspecified cp - Laceration without foreign body of scalp cp Followup: cp - With: Private Physician - When: 1 week - Reason: Staple/Suture removal Discharge Instructions: - Discharge Summary Sheet cp - Head Injury, Adult cp - Laceration Care, Adult cp - Sutures, [place], or Adhesive Wound Closure cp Forms: - Medication Reconciliation Form cp - Thank You Letter cp - Antibiotic Education cp - Prescription Opioid Use cp - Patient Portal Instructions cp - Leadership Thank You Letter cp Addendum: 01/27/2023 09:04 Co-signature as Attending Physician, Newton Cohen MD I reviewed the patient's care r n provided by the Advanced Practice Provider and agree with the diagnosis and treatment plan. Signatures: Dispatcher [employer] [facility] Newton Cohen MD MD rn Page, Corey, PA PA cp Elizabeth Waters RN RN vc1 Azucena Harris RN RN mb9 Corrections: (The following items were deleted from the chart) 01/20 23:18 23:01 Head C Spine MPR Wo Con+CT.RAD.BRZ ordered. [facility] EDAK 01/21 21:43 19:54 This 72 yrs old Male presents to ER via Ambulatory with complaints of Head Injury cp from Fall. cp 21:43 21:40 The patient or guardian reports injury, a laceration, cp cp 21:43 21:40 The complaints affect the occipital area and right parietal area and left cp parietal area, cp 21:43 21:40 Context of injury: resulted from a fall, while walking, cp cp 21:43 21:40 Onset: The symptoms/episode began/occurred just prior to arrival, cp cp 21:43 21:40 Associated signs and symptoms: Loss of consciousness: This patient did not cp experience any loss of consciousness. cp 21:43 21:40 admits to drinking alcohol and losing balance causing fall. cp cp 21:43 21:40 GCS: 15, cp cp 21:48 01/20 23:45 Wound Repair of 14cm ( 5.5in ) multiple laceration to left parietal area. cp Linear shaped.. Distal neuro/vascular/tendon intact. Anesthesia: Wound infiltrated with 8 mls of 2% lidocaine. Wound prep: Moderate cleansing by nurse. Skin closed with 12 1-0 Chava using staple gun. Dressed with Bacitracin. Patient tolerated well. cp
[2023-01-21 03:50] VITALS: TEMP 98; O2SAT 100
[2023-01-21 03:58] VITALS: BP 163/97
== END 2023-01-21 00:27 | disposition home or self-care (01) ==
LOC: ER 20:11
PROC: 0HQ0XZZ Repair Scalp Skin, External Approach (ICD-10-PCS; principal; 2023-01-20)
DX: S01.01XA Laceration without foreign body of scalp, initial encounter (principal); W18.30XA Fall on same level, unspecified, initial encounter; I10 Essential (primary) hypertension; Z79.82 Long term (current) use of aspirin
CPT/HCPCS: 70450; 72125; 96372; 99284

== ENCOUNTER → 2023-01-28 | Emergency (ER) | payer MEDICARE, OTHER ==
--- OUTSIDE RECORDS SUMMARY | 2023-01-28 10:28 | XMS REPORT | Continuity of Care Document ---
Author Name Unknown Address [address] [facility] [address] [place] [address] [facility] Address [address] [facility] [address] [place] [address] Care Team Providers Care Silk Top Hat Body Maker Name Role Phone PCP, PATIENT DOES NOT HAVE A Primary Care Physic sage Unavailable JACKY CADET Attending Clinician Unavailable SAMANTA DIAS Attending Clinician UnavailFLAKITO Newton Attending Clinician Unavail able Samanta Dias PA-C Attending Clinician [phone] Jacky Cadet PA-C Attending Clinician [phone] Leigh Ann BERRY MD, Lee R Attending Clinician [phone] GARY BELTRÁN III Attending Clinician Unaluis corey Doctor Unassigned, [place] Attending Clinician U Flakito Henderson Attending Clinician + [phone], [facility] Lab Attending Clinician Unavailable GIACOMO COX Attending Clinician Unavail able Nurse, Adc Pob Immunization Attending Clinician Unavailable Giacomo Cox DO Attending Clinician [phone] REGGIE MOSQUEDA Attending Clinician Unavailable REGGIE MOSQUEDA Attending Clinician Unavailable [facility] Attending Clinician Unavailable KIMMIE NEWTON Attending Clinician Unavailable Reggie Mosquead MD Attending Clinician [phone] Payers Payer Name Policy Type Policy Number Effective Date Expirati on Date Source [employer]AGE [id number] 2019 00:00:00 Problems Condition Name Condition Details Condition Category Status Onset Date Resolution Date Last Treatment Date Treating Clinician Comments Source Head and neck cancer Head and neck cancer Disease Active 2017-02 00:00: 00 [facility] Hemoptysis Hemoptysis Disease Active 08-24 00:00: 00 Overview: Formattin g of this note might be different from the original. Added automatic ally from request for surgery [id number] [facility] Allergies, Adverse Reactions, Alerts Allergy Name Allergy Type Status Severity Reaction(s) Onset Date Inactive Date Treating Clinician Comments Source NO KNOWN ALLERGIE S Drug Class Active [facility] Social History Social Habit Start Date Stop Date Quantity Comments Source History of tobacco use Chews Tobacco [facility] Alcohol intake 2022-05-03 00:00:00 2022-05-03 00:00:00 5 /d [facility] Exposure to SARS-CoV-2 (event) 2022-02-25 00:00:00 2022-03-07 09:19:00 Not sure [facility] Tobacco use and exposure 2021-08-17 00:00:00 2021-08-17 00:00:00 Smokeless tobacco non-user [facility] Cigarettes smoked current (pack per day) - Reported 2021-08-17 00:00:00 2021-08-17 00:00:00 [facility] Cigarette pack-years 2021-08-17 00:00:00 2021-08-17 00:00:00 [facility] Sex Assigned At 1950 00:00:00 1950 00:00:00 [facility] Smoking Status Start Date Stop Date Source Ex-smoker 2021-08-17 00:00:00 2021-08[facility]17 [facility]ations Ordered Medication Name Filled Medication Name Start Date Stop Date Current Medication? Ordering Clinician Indication Dosage Frequency Signature (SIG) Comments Components Source aspirin 81 mg chewable tablet 03-01 10:04: 43 Yes 81mg Take 81 mg by mouth daily. [facility] foLIC acid 1 mg tablet 03-01 10:04: 43 Yes 2mg Take 2 mg by mouth daily. [facility] Levothyroxi ne 25 mcg capsule 0 24 10:04: 43 Yes 25ug Take 25 mcg by mouth in the morning. [facility] aspirin 81 mg chewable tablet 0 24 10:04: 43 Yes 81mg Take 81 mg by mouth daily. [facility] foLIC acid 1 mg tablet 0 03-01 10:04: 43 Yes 2mg Take 2 mg by mouth daily. [facility] Levothyroxi ne 25 mcg capsule 0 03-01 10:04: 43 Yes 25ug Take 25 mcg by mouth in the morning. [facility] aspirin 81 mg chewable tablet 0 03-01 10:04: 43 Yes 81mg Take 81 mg by mouth daily. [facility] foLIC acid 1 mg tablet 03-01 10:04: 43 Yes 2mg Take 2 mg by mouth daily. [facility] Levothyroxi ne 25 mcg capsule 03-01 10:04: 43 Yes 25ug Take 25 mcg by mouth in the morning. [facility] aspirin 81 mg chewable tablet 0 03-01 10:04: 43 Yes 81mg Take 81 mg by mouth daily. [facility] foLIC acid 1 mg tablet 0 03-01 10:04: 43 Yes 2mg Take 2 mg by mouth daily. [facility] Levothyroxi ne 25 mcg capsule 0 03-01 10:04: 43 Yes 25ug Take 25 mcg by mouth in the morning. [facility] aspirin 81 mg chewable tablet 0 03-01 10:04: 43 Yes 81mg Take 81 mg by mouth daily. [facility] foLIC acid 1 mg tablet 0 03-01 10:04: 43 Yes 2mg Take 2 mg by mouth daily. [facility] Levothyroxi ne 25 mcg capsule 0 03-01 10:04: 43 Yes 25ug Take 25 mcg by mouth in the morning. [facility] aspirin 81 mg chewable tablet 2023-0 1-24 10:04: 43 Yes 81mg Take 81 mg by mouth daily. [facility] foLIC acid 1 mg tablet 0 03-01 10:04: 43 Yes 2mg Take 2 mg by mouth daily. [facility] Levothyroxi ne 25 mcg capsule 03-01 10:04: 43 Yes 25ug Take 25 mcg by mouth in the morning. [facility] aspirin 81 mg chewable tablet 0 03-01 10:04: 43 Yes 81mg Take 81 mg by mouth daily. [facility] foLIC acid 1 mg tablet 03-01 10:04: 43 Yes 2mg Take 2 mg by mouth daily. [facility] Levothyroxi ne 25 mcg capsule 03-01 10:04: 43 Yes 25ug Take 25 mcg by mouth in the morning. [facility] aspirin 81 mg chewable tablet 0 03-01 10:04: 43 Yes 81mg Take 81 mg by mouth daily. [facility] foLIC acid 1 mg tablet 03-01 10:04: 43 Yes 2mg Take 2 mg by mouth daily. [facility] Levothyroxi ne 25 mcg capsule 03-01 10:04: 43 Yes 25ug Take 25 mcg by mouth in the morning. [facility] aspirin 81 mg chewable tablet 0 10-19 08:41: 18 Yes 81mg Take 81 mg by mouth daily. [facility] foLIC acid 1 mg tablet 2021-0 10-19 08:41: 18 Yes 2mg Take 2 mg by mouth daily. [facility] aspirin 81 mg chewable tablet 2021-0 10-19 08:41: 18 Yes 81mg Take 81 mg by mouth daily. [facility] foLIC acid 1 mg tablet 2021-0 10-19 08:41: 18 Yes 2mg Take 2 mg by mouth daily. [facility] aspirin 81 mg chewable tablet 2021-0 10-19 08:41: 18 Yes 81mg Take 81 mg by mouth daily. [facility] foLIC acid 1 mg tablet 2021-0 9-13 08:41: 18 Yes 2mg Take 2 mg by mouth daily. [facility] telmisartan 20 mg tablet 2018-02 00:00: 00 Yes TK [address] [facility] telmisartan 20 mg tablet 2018-02 00:00: 00 Yes TK [address] [facility] telmisartan 20 mg tablet 2018-02 00:00: 00 Yes TK [address] [facility] telmisartan 20 mg tablet 2018-02 00:00: 00 Yes TK [address] [facility] telmisartan 20 mg tablet 2018-02 00:00: 00 Yes TK [address] [facility] telmisartan 20 mg tablet 2018-02 00:00: 00 Yes TK [address] [facility] telmisartan 20 mg tablet 2018-02 00:00: 00 Yes TK [address] [facility] telmisartan 20 mg tablet 2018-02 00:00: 00 Yes TK [address] [facility] telmisartan 20 mg tablet 2018-02 00:00: 00 Yes TK 1 T [address] [facility] telmisartan 20 mg tablet 2018-02 00:00: 00 Yes TK [address] [facility] telmisartan 20 mg tablet 2018-02 00:00: 00 Yes TK [address] [facility] Vital Signs Vital Name Observation Time Observation Value Comments S israel Systolic blood pressure 2022-05-03 14:55:00 118 mm[Hg] [facility] Diastolic blood pressure 2022-05-03 14:55:00 73 mm[Hg] [facility] Heart rate 2022-05-03 14:55:00 70 /min [facility] Body height 2022-05-03 14:55:00 180.3 cm [facility] Body weight 2022-05-03 14:55:00 79.47 kg [facility] BMI 2022-05-03 14:55:00 24.44 kg/m2 [facility] Oxygen saturation in Arterial blood by Pulse oximetry 2022-05-03 14:55:00 98 /min [facility] Systolic blood pressure 2022-03-07 15:10:00 138 mm[Hg] [facility] Diastolic blood pressure 2022-03-07 15:10:00 75 mm[Hg] [facility] Heart rate 2022-03-07 15:10:00 66 /min [facility] Body temperature 2022-03-07 15:10:00 36 Anum [facility] Respiratory rate 2022-03-07 15:10:00 18 /min [facility] Body weight 2022-03-07 15:10:00 78.881 kg [facility] BMI 2022-03-07 15:10:00 24.25 kg/m2 [facility] Oxygen saturation in Arterial blood by Pulse oximetry 2022-03-07 15:10:00 100 /min [facility] Systolic blood pressure 2022-03-01 16:04:00 125 mm[Hg] [facility] Diastolic blood pressure 2022-03-01 16:04:00 71 mm[Hg] [facility] Heart rate 2022-03-01 16:04:00 77 /min [facility] Body temperature 2022-03-01 16:04:00 35.83 Anum [facility] Respiratory rate 2022-03-01 16:04:00 18 /min [facility] Body height 2022-03-01 16:04:00 180.3 cm [facility] Body weight 2022-03-01 16:04:00 79.198 kg [facility] BMI 2022-03-01 16:04:00 24.35 kg/m2 [facility] Oxygen saturation in Arterial blood by Pulse oximetry 2022-03-01 16:04:00 99 /min [facility] Systolic blood pressure 2021-10-19 13:40:00 123 mm[Hg] [facility] Diastolic blood pressure 2021-10-19 13:40:00 67 mm[Hg] [facility] Heart rate 2021-10-19 13:40:00 79 /min [facility] Body temperature 2021-10-19 13:40:00 36.56 Anum [facility] Body height 2021-10-19 13:40:00 180.3 cm [facility] Body weight 2021-10-19 13:40:00 76.567 kg [facility] BMI 2021-10-19 13:40:00 23.54 kg/m2 [facility] Oxygen saturation in Arterial blood by Pulse oximetry 2021-10-19 13:40:00 99 /min [facility] Procedures Procedure Date / Time Performed Performing Clinicia n Source [facility] E[facility] 2022-05-03 00:00:00 Jacky Cadet [facility] CONSENT/REFUSAL FOR DIAGNOSIS AND TREATMENT 2022-03-07 15:07:46 Doctor Unassigned, [place] [facility] FLEXIBLE SCOPE ENT 2021-10-19 00:00:00 Jacky Cadet [facility] Encounters Start Date/Time End Date/Time Encounter Type Admission Type Attending Clinicians Care Facility Care Department Encounter ID Source 2022-11-29 10:00:00 2022-11-29 10:00:00 Outpatient JACKY LEONARD [facility] [id number] [facility] 2022-09-13 09:30:00 2022-09-13 09:30:00 Outpatient SAMANTA NLESON [facility] [id number] [facility] 2022-09-12 10:30:00 2022-09-12 10:30:00 Outpatient SAMANTA NELSON [facility] [id number] [facility] 2022-07-13 00:00:00 2022-07-13 00:00:00 Case Management Samanta Dias [facility] 1.2.840.114 350.1.13.10 4.2.7.2.[id number] [facility] 2022-05-03 10:45:00 2022-05-03 11:00:00 Office Visit Jacky Cadet [facility] 1.2.840.114 350.1.13.10 4.2.7.2.[id number] [facility] 2022-05-03 10:45:00 2022-05-03 10:45:00 Outpatient R JACKY CADET [facility] [id number] [facility] 2022-03-07 09:00:00 2022-03-07 09:30:00 Office Visit Gary Beltrán [facility] 1.2.840.114 350.1.13.10 4.2.7.2.[id number] [facility] 2022-03-07 09:00:00 2022-03-07 09:00:00 Outpatient GARY MARI III [facility] [id number] [facility] 2022-03-07 00:00:00 2022-03-07 00:00:00 Orders Only Doctor Unassigned, [place] [facility] 1.2.840.114 350.1.13.10 4.2.7.2.[id number] [facility] 2022-03-01 10:30:00 2022-03-01 10:30:00 Office Visit Flakito Hilario [facility] 1.2.840.114 350.1.13.10 4.2.7.2.[id number] [facility] 2022-03-01 10:30:00 2022-03-01 09:55:41 Outpatient R FLAKITO HILARIO [facility] [id number] [facility] 2022-02-16 10:00:00 2022-02-16 10:15:[address] Judge Visit 2, Adc Lab Flakito Hilario [facility] 1..840.114 350.1.13.10 4.2.7.2.[id number] [facility] 2022-02-16 10:00:00 2022-02-16 10:00:00 Outpatient R FLAKITO HILARIO [facility] [id number] [facility] 2021-10-19 09:15:00 2021-10-19 09:30:00 Office Visit Helio [facility] 1..840.114 350.1.13.10 4.2.7.2.[id number] [facility] 2021-10-19 09:15:00 2021-10-19 09:15:00 Outpatient R HELIO [facility] [id number] [facility] 2021-08-17 10:30:00 2021-08-17 11:30:00 Office Visit Eloy Hilarioen Hodasa MYLES [facility] 1..840.114 350.1.13.10 4.2.7.2.[id number] [facility] 2021-08-17 10:30:00 2021-08-17 10:30:00 Outpatient Brian FLAKITO HILARIO [facility] [id number] [facility] 2021-08-10 13:30:00 2021-08-10 13:45:[address] Judge Visit 2, Adc Lab Flakito Hilario [facility] 1..840.114 350.1.13.10 4.2.7.2.[id number] [facility] 2021-08-10 13:30:00 2021-08-10 13:30:00 Outpatient R FLAKITO HILARIO [facility] [id number] [facility] 2021-03-16 09:15:00 2021-03-16 09:30:00 Office Visit Helio [facility] 1.2.840.114 350.1.13.10 4.2.7.2.[id number] [facility] 2021-03-16 09:15:00 2021-03-16 09:15:00 Outpatient R JACKY CADET [facility] [id number] [facility] 2021-03-16 09:15:00 2021-03-16 09:15:00 Outpatient R JACKY CADET [facility] [id number] [facility] 2021-03-08 10:00:00 2021-03-08 10:05:03 Outpatient R LEIGH ANN BERRY [facility] [id number] [facility] 2021-03-08 10:00:00 2021-03-08 10:05:03 Office Visit Gary Beltrán [facility] 1.2.840.114 350.1.13.10 4.2.7.2.[id number] [facility] 2021-03-08 10:00:00 2021-03-08 10:05:03 Office Visit Gary Beltrán [facility] 1.2.840.114 350.1.13.10 4.2.7.2.[id number] [facility] 2021-03-08 10:00:00 2021-03-08 10:05:03 Outpatient R LEIGH ANN BERRY [facility] [id number] [facility] 2021-02-16 10:30:00 2021-02-16 10:30:00 Outpatient R FLAKITO HILARIO [facility] [id number] [facility] 2021-02-16 10:30:00 2021-02-16 10:30:00 Office Visit Flakito Hilario [facility] 1.2.840.114 350.1.13.10 4.2.7.2.[id number] [facility] 2021-02-16 10:30:00 2021-02-16 10:10:39 Outpatient FLAKITO ADRIAN [facility] [id number] [facility] 2021-02-09 08:45:00 2021-02-09 10:39:[address] Judge Visit 2, Adc Kyra Flakito Hilario [facility] 1.2840.114 350.1.13.10 4.2.7.2.[id number] [facility] 2021-02-09 08:45:00 2021-02-09 08:45:00 Outpatient R FLAKITO HILARIO [facility] [id number] [facility] 2021-01-06 15:00:00 2021-01-06 15:00:00 [id number] 2021-01-06 12:57:07 2021-01-06 12:57:22 Imm/Inj Visit Nurse, [facility] Pob Immunizatio Giacomo Moore [facility] [employer] 1.114 350.1.13.10 4.2.7.2.[id number] [facility] 2020-11-10 09:15:00 2020-11-10 09:15:00 Outpatient R HELIO JACKY [facility] [id number] [facility] 2020-11-10 08:43:55 2020-11-10 08:58:55 Office Visit Helio Jacky [facility] 1.2.114 350.1.13.10 4.2.7.2.[id number] [facility] 2020-11-10 00:00:00 2020-11-10 00:00:00 Orders Only Doctor Unassigned, [place] [facility] 1.0.114 350.1.13.10 4.2.7.2.[id number] [facility] 2020-08-25 11:30:00 2020-08-25 11:30:00 Outpatient REGGIE MCDERMOTT MAURICE [facility] [id number] [facility] 2020-08-19 13:37:22 2020-08-19 13:52:[address] Judge Visit [facility] Flakito Hilario [facility] 1..840.114 350.1.13.10 4.2.7.2.[id number] [facility] 2020-08-19 12:17:32 2020-08-19 13:17:32 [facility] 1..840.114 350.1.13.10 4.2.7.2.[id number] [facility] 2020-08-19 13:00:00 2020-08-19 13:00:00 Outpatient FLAKITO ADRIAN [facility] [id number] [facility] 2020-07-07 10:00:00 2020-07-07 10:00:00 Outpatient JACKY LEONARD [facility] [id number] [facility] 2020-07-07 09:18:03 2020-07-07 09:33:03 Office Visit Jacky Cadet [facility] 1..840.114 350.1.13.10 4.2.7.2.[id number] [facility] 2020-04-01 12:00:00 2020-04-01 12:00:00 Outpatient KIMMIE MICHEL [facility] [id number] [facility] 2020-03-04 12:50:00 2020-03-04 12:50:00 Outpatient KIMMIE MICHEL [facility] [id number] [facility] 2020-03-03 09:15:00 2020-03-03 09:15:00 Outpatient JACKY LEONARD [facility] [id number] [facility] 2020-03-03 08:39:20 2020-03-03 08:54:20 Office Visit HelioJacky [facility] 1.2.840.114 350.1.13.10 4.2.7.2.[id number] [facility] 2020-02-25 13:33:44 2020-02-25 14:12:41 Office Visit Reggie Mosqueda [facility] 1.2.840.114 350.1.13.10 4.2.7.2.[id number] [facility] 2020-02-25 13:40:00 2020-02-25 13:40:00 Outpatient R REGGIE MOSQUEDA MAURICE [facility] [id number] [facility] 2020-02-17 09:07:26 2020-02-17 11:21:00 Office Visit Gary Beltrán [facility] 1.2840.114 350.1.13.10 4.2.7.2.[id number] [facility] 2020-02-17 09:52:45 2020-02-17 10:07:[address] Visit [facility] Gary Beltrán [facility] 1.2840.114 350.1.13.10 4.2.7.2.[id number] [facility] 2020-02-17 09:30:00 2020-02-17 09:30:00 Outpatient GARY MARI III [facility] [id number] [facility] 2019-11-05 08:40:41 2019-11-05 14:58:19 Office Visit Jacky Cadet [facility] [place] 1.2.840.114 350.1.13.10 4.2.7.2.[id number] [facility] 2019-11-05 09:15:00 2019-11-05 09:15:00 Outpatient R HELIOMEAGANAN [facility] [id number] [facility] 2019-07-30 08:35:02 2019-11-05 09:12:32 Office Visit Jacky Cadet [facility] [place] 1.2.840.114 350.1.13.10 4.2.7.2.[id number] [facility] 2019-11-05 00:00:00 2019-11-05 00:00:00 Orders Only Doctor Unassigned, [place] [facility] 1.2.840.114 350.1.13.10 4.2.7.2.[id number] [facility] 2019-08-26 00:00:00 2019-08-26 00:00:00 Telephone Reggie Mosqueda [facility] 1.2840.114 350.1.13.10 4.2.7.2.[id number] [facility] 2019-08-20 15:00:00 2019-08-20 15:00:00 Outpatient REGGIE MCDERMOTT MAURICE [facility] [id number] [facility] 2019-08-20 14:00:18 2019-08-20 14:20:18 Telemedici ne Visit Reggie Mosqueda [facility] 1.2840.114 350.1.13.10 4.2.7.2.[id number] [facility] 2019-07-30 14:00:00 2019-07-30 14:00:00 Outpatient REGGIE MCDERMOTT MAURICE [facility] [id number] [facility] 2019-07-30 09:30:00 2019-07-30 09:30:00 Outpatient JACKY LEONARD [facility] [id number] [facility] 2019-05-01 09:15:00 2019-05-01 09:15:00 Outpatient R JACKY CADET [facility] [id number] [facility] 2019-05-01 07:11:39 2019-05-01 07:26:39 Telemedici ne Visit Jacky Cadet [facility] 1.2840.114 350.1.13.10 4.2.7.2.[id number] [facility] 2019-04-24 08:34:00 2019-04-24 23:59:00 Hospital Encounter Helio [facility] 1.2840.114 350.1.13.10 4.2.7.2.[id number] [facility] 2019-04-24 08:33:00 2019-04-24 08:33:00 Hospital Encounter Helio [facility] 1.2840.114 350.1.13.10 4.2.7.2.[id number] [facility] 2019-04-24 00:00:00 2019-04-24 00:00:00 Outpatient R JACKY CADET [facility] [id number] [facility] 2019-02-18 13:23:33 2019-03-07 07:38:05 Office Visit Gary Beltrán [facility] 1..114 350.1.13.10 4.2.7.2.[id number] [facility] 2019-02-18 00:00:00 2019-02-18 00:00:00 Orders Only Doctor Unassigned, [place] [facility] 1.2840.114 350.1.13.10 4.2.7.2.[id number] [facility]
--- NOTE | 2023-01-28 16:28 | ER ---
Nurse's Notes [facility] Name: Tam Randle Age: 72 yrs Sex: Male : 1950 Arrival Date: 01/28/2023 Time: 10:25 Bed Waiting Private MD: Diagnosis: Presentation: 01/28 11:13 Chief complaint: Patient states: HERE TO GET ROSALBA REMOVED FROM RIGHT SIDE OF HEAD. jj7 HAD THEM PUT IN OUR ER 10 DAYS AGO. WAS TOLD TO COME BACK TO GET THEM REMOVED. Coronavirus screen: At this time, the client does not indicate any symptoms associated with coronavirus-19. Ebola Screen: No symptoms or risks identified at this time. Initial Sepsis Screen: Does the patient meet any 2 criteria? No. Patient's initial sepsis screen is negative. Does the patient have a suspected source of infection? No. Patient's initial sepsis screen is negative. Risk Assessment: Do you want to hurt yourself or someone else? Patient reports no desire to harm self or others. 11:13 Method Of Arrival: [facility] 11:13 Acuity: DRE 5 j7 Triage Assessment: 11:15 General: Appears in no apparent distress. comfortable, Behavior is calm, cooperative, jj7 appropriate for age. Pain: Denies pain. Historical: - Allergies: 11:15 No Known Allergies; jj7 - PMHx: 11:15 Hypertension; jj7 - PSHx: 11:15 None; jj7 - Immunization history:: Adult Immunizations up to date. - Social history:: Smoking status: Patient denies any tobacco usage or history of. Patient uses alcohol, on a daily basis. admits to "couple of beers" a day. Patient/guardian denies using street drugs. Screenin:16 [facility] ED Fall Risk Assessment (Adult) History of falling in the last 3 months, j including since admission Yes- single mechanical fall (1 pt) Confusion or Disorientation No (0 pts) Intoxicated or Sedated No (0 pts) Impaired Gait No (0 pts) Mobility Assist Device Used No (0 pt) Altered Elimination No (0 pt) Score/Fall Risk Level 0 - 2 = Low Risk Oriented to surroundings, Maintained a safe environment, Educated pt \\T\\ family on fall prevention, incl call for assistance when getting out of bed. Abuse screen: Denies threats or abuse. Nutritional screening: No deficits noted. Tuberculosis screening: No symptoms or risk factors identified. Assessment: 12:41 General: nurse attempted to call patient back, and patient did not respond when called..ap3 14:10 General: called patients phone to see if he had left. patient verified that he had ap3 left, and might return tomorrow.. Vital Signs: 11:13 BP 127 / 81; Pulse 66; Resp 15; Temp 97.6; Pulse Ox 99% ; Weight 74.84 kg; Height 5 ft. jj7 11 in. ; Pain 0/10; 11:13 Body Mass Index 23.01 (74.84 kg, 180.34 cm) jj7 11:13 Pain Scale: Adult jj7 ED Course: 10:25 Patient arrived in ED. im 10:29 Abbe Addison PA is PHCP. cp 10:29 Abbe Childress MD is Attending Physician. cp 11:15 Triage completed. jj7 11:15 Arm band placed on right wrist. jj7 Administered Medications: No medications were administered Outcome: 16:27 Patient left the ED. jl7 Signatures: Abbe Addison PA PA cp Neli Wagner RN RN jl7 Maureen Hand RN RN [email or web address] Moses Coulter RN RN jj7 Fadumo Cobos
--- NOTE | 2023-01-28 16:28 | EDPHYS ---
Physician Documentation [facility] Name: Tam Randle Age: 72 yrs Sex: Male : 1950 Arrival Date: 01/28/2023 Time: 10:25 Bed Waiting Private MD: Abbe Ramirez HPI: 01/28 11:30 This 72 yrs old Male presents to ER via Ambulatory with complaints of Suture Removal. cp 11:30 The patient has kathi on the scalp. Previous treatment: The patient was initially cp treated on January 21, 2023, the care was rendered at [facility], Treatment type: The patient's original treatment included kathi, Previous recheck: the patient has not been checked since the original treatment. Sutures/kathi progress: The patient has no c/o's. The wound is well-healing with no redness, swelling, discharge, or dehiscence reported. Historical: - Allergies: 11:15 No Known Allergies; jj7 - PMHx: 11:15 Hypertension; jj7 - PSHx: 11:15 None; jj7 - Immunization history:: Adult Immunizations up to date. - Social history:: Smoking status: Patient denies any tobacco usage or history of. Patient uses alcohol, on a daily basis. admits to "couple of beers" a day. Patient/guardian denies using street drugs. ROS: 11:35 Skin: Negative for history of scalp lacerations with staple placement, cp 11:35 Eyes: Negative for injury, pain, redness, and discharge, cp 11:35 Constitutional: Negative for body aches, chills, fever, poor PO intake, 11:35 Neck: Negative for pain with movement, pain at rest, stiffness, 11:35 Cardiovascular: Negative for chest pain, palpitations, 11:35 Respiratory: Negative for cough, shortness of breath, wheezing, 11:35 Abdomen/GI: Negative for abdominal pain, nausea, vomiting, and diarrhea, 11:35 Back: Negative for pain at rest, pain with movement, Exam: 11:40 Constitutional: The patient appears in no acute distress, alert, awake, comfortable, cp non-toxic, well developed, well nourished, 11:40 Head/face: Exam is negative for tenderness, 11:40 Neck: ROM/movement: is normal, is supple, without pain, no range of motions limitations, 11:40 Cardiovascular: Rate: normal, 11:40 Respiratory: the patient does not display signs of respiratory distress, Respirations: normal, 11:40 Skin: Wound recheck: Staple laceration closure: the wound is healing well, the edges are well approximated, multiple kathi in place in scalp that appear well healed with no erythema, swelling and/or drainage expressed, 11:40 Neuro: Motor: moves all fours, strength is normal, Gait: is steady, Vital Signs: 11:13 BP 127 / 81; Pulse 66; Resp 15; Temp 97.6; Pulse Ox 99% ; Weight 74.84 kg; Height 5 ft. jj7 11 in. ; Pain 0/10; 11:13 Body Mass Index 23.01 (74.84 kg, 180.34 cm) j7 11:13 Pain Scale: Adult jj7 MDM: 11:20 Patient medically screened. cp Administered Medications: No medications were administered Disposition Summary: 01/28/23 16:27 Eloped Notes: Disposition: after being seen by provider jl7 Reason: unknown jlBelinda Signatures: Abbe Addison PA PA cp Leal, Jahala, RN RN jl7 Moses Coulter RN RN jj7 Corrections: (The following items were deleted from the chart) 15:51 11:30 Previous treatment: the care was rendered at [facility], Treatment type: The patient's original treatment included kathi, cp 01/29 09: 09:28 Skin: Wound recheck: Staple laceration closure: the wound is healing well, the cp edges are well approximated, multiple kathi in place in scalp that appear well healed with no erythema, swelling and/or drainage expressed, cp ::28 Constitutional: The patient appears in no acute distress, alert, awake, cp comfortable, non-toxic, well developed, well nourished, cp : 09:28 Head/face: Exam is negative for tenderness, cp cp : 09:28 Cardiovascular: Rate: normal, cp cp : 09:28 Respiratory: the patient does not display signs of respiratory distress, cp Respirations: normal, cp 09:28 Neck: ROM/movement: is normal, is supple, without pain, no range of motions cp limitations, cp 09:31 09:28 Neuro: Motor: moves all fours, strength is normal, Gait: is steady, cp cp
[2023-01-28 17:24] VITALS: BP 127/81; TEMP 97.6; O2SAT 99
== END ==
LOC: ER 10:25
DX: Z53.21 Procedure and treatment not carried out due to patient leaving prior to being seen by health care provider (principal)
CPT/HCPCS: 99281

== ENCOUNTER → 2023-01-29 | Emergency (ER) | payer OTHER ==
--- OUTSIDE RECORDS SUMMARY | 2023-01-29 09:31 | XMS REPORT | Continuity of Care Document ---
Author Name Unknown Address [address] [facility] [address] [place] [address] [facility] Address [address] [facility] [address] [place] [address] Care Team Providers Care Bushel Girl Name Role Phone PCP, PATIENT DOES NOT HAVE A Primary Care Physic sage Unavailable JACKY CADET Attending Clinician Unavailable SAMANTA DIAS Attending Clinician UnavailFLAKITO Newton Attending Clinician Unavail able Samanta Dias PA-C Attending Clinician [phone] Jacky Cadet PA-C Attending Clinician [phone] Danielle BERRY MD, Lee R Attending Clinician [phone] GARY BELTRÁN III Attending Clinician Unaluis corey Doctor Unassigned, [place] Attending Clinician U Flakito Henderson Attending Clinician + [phone], [facility] Attending Clinician Unavailable GIACOMO COX Attending Clinician Unavail able Nurse, Ad[facility] Pob Immunization Attending Clinician Unavailable Giacomo Cox DO Attending Clinician [phone] REGGIE MOSQUEDA Attending Clinician Unavailable REGGIE MOSQUEDA Attending Clinician Unavailable [facility] Attending Clinician Unavailable KIMMIE NEWTON Attending Clinician Unavailable Reggie Mosqueda MD Attending Clinician [phone] Payers Payer Name Policy Type Policy Number Effective Date Expirati on Date Source [employer]AGE [id number] 2019 00:00:00 Problems Condition Name Condition Details Condition Category Status Onset Date Resolution Date Last Treatment Date Treating Clinician Comments Source Head and neck cancer Head and neck cancer Disease Active 2017-02 2 00:00: 00 [facility] Hemoptysis Hemoptysis Disease Active 08-24 00:00: 00 Overview: Formattin g of this note might be different from the original. Added automatic ally from request for surgery [id number] [facility] Allergies, Adverse Reactions, Alerts Allergy Name Allergy Type Status Severity Reaction(s) Onset Date Inactive Date Treating Clinician Comments Source NO KNOWN ALLERGIE S Drug Class Active [facility] Social History Social Habit Start Date Stop Date Quantity Comments Source History of tobacco use Chews Tobacco [facility] Alcohol intake 2022-05-03 00:00:00 2022-05-03 00:00:00 5 /d [facility] Exposure to SARS-CoV-2 (event) 2022-02-25 00:00:00 2022-03-07 09:19:00 Not sure [facility] Tobacco use and exposure 2021-08-17 00:00:00 2021-08-17 00:00:00 Smokeless tobacco non-user [facility] Cigarettes smoked current (pack per day) - Reported 2021-08-17 00:00:00 2021-08-17 00:00:00 [facility] Cigarette pack-years 2021-08-17 00:00:00 2021-08-17 00:00:00 [facility] Sex Assigned At 1950 00:00:00 1950 00:00:00 [facility] Smoking Status Start Date Stop Date Source Ex-smoker 2021-08-17 00:00:00 2021-08-17 [facility] Medic[facility] Ordered Medication Name Filled Medication Name Start Date Stop Date Current Medication? Ordering Clinician Indication Dosage Frequency Signature (SIG) Comments Components Source aspirin 81 mg chewable tablet 03-01 10:04: 43 Yes 81mg Take 81 mg by mouth daily. [facility] foLIC acid 1 mg tablet 03-01 10:04: 43 Yes 2mg Take 2 mg by mouth daily. [facility] Levothyroxi ne 25 mcg capsule 03-01 10:04: 43 Yes 25ug Take 25 mcg by mouth in the morning. [facility] aspirin 81 mg chewable tablet 03-01 10:04: 43 Yes 81mg Take 81 mg by mouth daily. [facility] foLIC acid 1 mg tablet 03-01 10:04: 43 Yes 2mg Take 2 mg by mouth daily. [facility] Levothyroxi ne 25 mcg capsule 03-01 10:04: 43 Yes 25ug Take 25 mcg by mouth in the morning. [facility] aspirin 81 mg chewable tablet 03-01 10:04: 43 Yes 81mg Take 81 mg by mouth daily. [facility] foLIC acid 1 mg tablet 03-01 10:04: 43 Yes 2mg Take 2 mg by mouth daily. [facility] Levothyroxi ne 25 mcg capsule 03-01 10:04: 43 Yes 25ug Take 25 mcg by mouth in the morning. [facility] aspirin 81 mg chewable tablet 03-01 10:04: 43 Yes 81mg Take 81 mg by mouth daily. [facility] foLIC acid 1 mg tablet 03-01 10:04: 43 Yes 2mg Take 2 mg by mouth daily. [facility] Levothyroxi ne 25 mcg capsule 03-01 10:04: 43 Yes 25ug Take 25 mcg by mouth in the morning. [facility] aspirin 81 mg chewable tablet 03-01 10:04: 43 Yes 81mg Take 81 mg by mouth daily. [facility] foLIC acid 1 mg tablet 03-01 10:04: 43 Yes 2mg Take 2 mg by mouth daily. [facility] Levothyroxi ne 25 mcg capsule 03-01 10:04: 43 Yes 25ug Take 25 mcg by mouth in the morning. [facility] aspirin 81 mg chewable tablet 0 03-01 10:04: 43 Yes 81mg Take 81 mg by mouth daily. [facility] foLIC acid 1 mg tablet 03-01 10:04: 43 Yes 2mg Take 2 mg by mouth daily. [facility] Levothyroxi ne 25 mcg capsule 03-01 10:04: 43 Yes 25ug Take 25 mcg by mouth in the morning. [facility] aspirin 81 mg chewable tablet 03-01 10:04: 43 Yes 81mg Take 81 mg by mouth daily. [facility] foLIC acid 1 mg tablet 03-01 10:04: 43 Yes 2mg Take 2 mg by mouth daily. [facility] Levothyroxi ne 25 mcg capsule 03-01 10:04: 43 Yes 25ug Take 25 mcg by mouth in the morning. [facility] aspirin 81 mg chewable tablet 03-01 10:04: 43 Yes 81mg Take 81 mg by mouth daily. [facility] foLIC acid 1 mg tablet 03-01 10:04: 43 Yes 2mg Take 2 mg by mouth daily. [facility] Levothyroxi ne 25 mcg capsule 03-01 10:04: 43 Yes 25ug Take 25 mcg by mouth in the morning. [facility] aspirin 81 mg chewable tablet 0 10-19 08:41: 18 Yes 81mg Take 81 mg by mouth daily. [facility] foLIC acid 1 mg tablet 2021-0 10-19 08:41: 18 Yes 2mg Take 2 mg by mouth daily. [facility] aspirin 81 mg chewable tablet 2021-0 10-19 08:41: 18 Yes 81mg Take 81 mg by mouth daily. [facility] foLIC acid 1 mg tablet 2021-0 10-19 08:41: 18 Yes 2mg Take 2 mg by mouth daily. [facility] aspirin 81 mg chewable tablet 2021-0 10-19 08:41: 18 Yes 81mg Take 81 mg by mouth daily. [facility] foLIC acid 1 mg tablet 2021-0 10-19 08:41: 18 Yes 2mg Take 2 mg by mouth daily. [facility] telmisartan 20 mg tablet 2018-02 00:00: 00 Yes TK 1 T PO ONCE D [facility] telmisartan 20 mg tablet 2018-02 00:00: 00 Yes TK 1 T PO ONCE D [facility] telmisartan 20 mg tablet 2018-02 00:00: 00 Yes TK 1 T PO ONCE D [facility] telmisartan 20 mg tablet 2018-02 00:00: 00 Yes TK 1 T PO ONCE D [facility] telmisartan 20 mg tablet 2018-02 00:00: 00 Yes TK 1 T PO ONCE D [facility] telmisartan 20 mg tablet 2018-02 00:00: 00 Yes TK 1 T PO ONCE D [facility] telmisartan 20 mg tablet 2018-02 00:00: 00 Yes TK 1 T PO ONCE D [facility] telmisartan 20 mg tablet 2018-02 00:00: 00 Yes TK 1 T PO ONCE D [facility] telmisartan 20 mg tablet 2018-02 00:00: 00 Yes TK 1 T PO ONCE D [facility] telmisartan 20 mg tablet 2018-02 00:00: 00 Yes TK 1 T PO ONCE D [facility] telmisartan 20 mg tablet 2018-02 00:00: 00 Yes TK 1 T PO ONCE D [facility] Vital Signs Vital Name Observation Time Observation Value Comments S edvin Systolic blood pressure 2022-05-03 14:55:00 118 mm[Hg] [facility] Diastolic blood pressure 2022-05-03 14:55:00 73 mm[Hg] [facility] Heart rate 2022-05-03 14:55:00 70 /min [facility] Body height 2022-05-03 14:55:00 180.3 cm [facility] Body weight 2022-05-03 14:55:00 79.47 kg [facility] BMI 2022-05-03 14:55:00 24.44 kg/m2 [facility] Oxygen saturation in Arterial blood by Pulse oximetry 2022-05-03 14:55:00 98 /min [facility] Systolic blood pressure 2022-03-07 15:10:00 138 mm[Hg] [facility] Diastolic blood pressure 2022-03-07 15:10:00 75 mm[Hg] [facility] Heart rate 2022-03-07 15:10:00 66 /min [facility] Body temperature 2022-03-07 15:10:00 36 Anum [facility] Respiratory rate 2022-03-07 15:10:00 18 /min [facility] Body weight 2022-03-07 15:10:00 78.881 kg [facility] BMI 2022-03-07 15:10:00 24.25 kg/m2 [facility] Oxygen saturation in Arterial blood by Pulse oximetry 2022-03-07 15:10:00 100 /min [facility] Systolic blood pressure 2022-03-01 16:04:00 125 mm[Hg] [facility] Diastolic blood pressure 2022-03-01 16:04:00 71 mm[Hg] [facility] Heart rate 2022-03-01 16:04:00 77 /min [facility] Body temperature 2022-03-01 16:04:00 35.83 Anum [facility] Respiratory rate 2022-03-01 16:04:00 18 /min [facility] Body height 2022-03-01 16:04:00 180.3 cm [facility] Body weight 2022-03-01 16:04:00 79.198 kg [facility] BMI 2022-03-01 16:04:00 24.35 kg/m2 [facility] Oxygen saturation in Arterial blood by Pulse oximetry 2022-03-01 16:04:00 99 /min [facility] Systolic blood pressure 2021-10-19 13:40:00 123 mm[Hg] [facility] Diastolic blood pressure 2021-10-19 13:40:00 67 mm[Hg] [facility] Heart rate 2021-10-19 13:40:00 79 /min [facility] Body temperature 2021-10-19 13:40:00 36.56 Anum [facility] Body height 2021-10-19 13:40:00 180.3 cm [facility] Body weight 2021-10-19 13:40:00 76.567 kg [facility] BMI 2021-10-19 13:40:00 23.54 kg/m2 [facility] Oxygen saturation in Arterial blood by Pulse oximetry 2021-10-19 13:40:00 99 /min [facility] Procedures Procedure Date / Time Performed Performing Clinicia n Source [facility] 2022-05-03 00:00:00 Jacky Cadet [facility] CONSENT/REFUSAL FOR DIAGNOSIS AND TREATMENT 2022-03-07 15:07:46 Doctor Unassigned, [place] [facility] FLEXIBLE SCOPE ENT 2021-10-19 00:00:00 Jacky Cadet [facility] Encounters Start Date/Time End Date/Time Encounter Type Admission Type Attending Clinicians Care Facility Care Department Encounter ID Source 2022-11-29 10:00:00 2022-11-29 10:00:00 Outpatient JACKY LEONARD [facility] [id number] [facility] 2022-09-13 09:30:00 2022-09-13 09:30:00 Outpatient SAMANTA NELSON [facility] [id number] [facility] 2022-09-12 10:30:00 2022-09-12 10:30:00 Outpatient SAMANTA NELSON [facility] [id number] [facility] 2022-07-13 00:00:00 2022-07-13 00:00:00 Case Management Samanta Dias [facility] 1.2.840.114 350.1.13.10 4.2.7.2.686 [id number] [facility] 2022-05-03 10:45:00 2022-05-03 11:00:00 Office Visit Jacky Cadet [facility] 1.84.114 350.1.13.10 4.2.7.2.686 [id number] [facility] 2022-05-03 10:45:00 2022-05-03 10:45:00 Outpatient R JACKY CADET [facility] [id number] [facility] 2022-03-07 09:00:00 2022-03-07 09:30:00 Office Visit Gary Beltrán [facility] 1.840.114 350.1.13.10 4.2.7.2.686 [id number] [facility] 2022-03-07 09:00:00 2022-03-07 09:00:00 Outpatient GARY MARI III [facility] [id number] [facility] 2022-03-07 00:00:00 2022-03-07 00:00:00 Orders Only Doctor Unassigned, [place] [facility] 1.84.114 350.1.13.10 4.2.7.2.686 [id number] [facility] 2022-03-01 10:30:00 2022-03-01 10:30:00 Office Visit Flakito Hilario [facility] 1.840.114 350.1.13.10 4.2.7.2.686 [id number] [facility] 2022-03-01 10:30:00 2022-03-01 09:55:41 Outpatient FLAKITO ADRIAN [facility] [id number] [facility] 2022-02-16 10:00:00 2022-02-16 10:15:00 Set Staff Fitter Visit 2, Adc Lab Flakito Hilario [facility] 1.840.114 350.1.13.10 4.2.7.2.686 [id number] [facility] 2022-02-16 10:00:00 2022-02-16 10:00:00 Outpatient Brian FLAKITO HILARIO [facility] [id number] [facility] 2021-10-19 09:15:00 2021-10-19 09:30:00 Office Visit Helio [facility] 1..840.114 350.1.13.10 4.2.7.2.686 [id number] [facility] 2021-10-19 09:15:00 2021-10-19 09:15:00 Outpatient R HELIO [facility] [id number] [facility] 2021-08-17 10:30:00 2021-08-17 11:30:00 Office Visit Sulaiman Flakito MYLES [facility] 1..840.114 350.1.13.10 4.2.7.2.686 [id number] [facility] 2021-08-17 10:30:00 2021-08-17 10:30:00 Outpatient Brian FLAKITO HILARIO [facility] [id number] [facility] 2021-08-10 13:30:00 2021-08-10 13:45:00 Set Staff Fitter Visit 2, Adc Lab Sulaiman Flakito Hoda [facility] JANET COFFEY [facility] 1..840.114 350.1.13.10 4.2.7.2.686 [id number] [facility] 2021-08-10 13:30:00 2021-08-10 13:30:00 Outpatient Brian FLAKITO HILARIO [facility] [id number] [facility] 2021-03-16 09:15:00 2021-03-16 09:30:00 Office Visit Helio [facility] 1.2.840.114 350.1.13.10 4.2.7.2.686 [id number] [facility] 2021-03-16 09:15:00 2021-03-16 09:15:00 Outpatient JACKY LEONARD [facility] [id number] [facility] 2021-03-16 09:15:00 2021-03-16 09:15:00 Outpatient R JACKY CADET [facility] [id number] [facility] 2021-03-08 10:00:00 2021-03-08 10:05:03 Outpatient Brian BELTRÁN III [facility] [id number] [facility] 2021-03-08 10:00:00 2021-03-08 10:05:03 Office Visit Gary Beltrán [facility] 1.2.840.114 350.1.13.10 4.2.7.2.686 [id number] [facility] 2021-03-08 10:00:00 2021-03-08 10:05:03 Office Visit Gary Beltrán [facility] 1.2.840.114 350.1.13.10 4.2.7.2.686 [id number] [facility] 2021-03-08 10:00:00 2021-03-08 10:05:03 Outpatient R GARY BELTRÁN III [facility] [id number] [facility] 2021-02-16 10:30:00 2021-02-16 10:30:00 Outpatient FLAKITO ADRIAN [facility] [id number] [facility] 2021-02-16 10:30:00 2021-02-16 10:30:00 Office Visit Flakito Hilario [facility] 1.2.840.114 350.1.13.10 4.2.7.2.686 [id number] [facility] 2021-02-16 10:30:00 2021-02-16 10:10:39 Outpatient R FLAKITO HILARIO [facility] [id number] [facility] 2021-02-09 08:45:00 2021-02-09 10:39:04 Set Staff Fitter Visit 2, Adc Kyra Flakito Hilario [facility] 1.2840.114 350.1.13.10 4.2.7.2.686 [id number] [facility] 2021-02-09 08:45:00 2021-02-09 08:45:00 Outpatient R FLAKITO HILARIO [facility] [id number] [facility] 2021-01-06 15:00:00 2021-01-06 15:00:00 Outpatient GIACOMO CONNELL [facility] [id number] [facility] 2021-01-06 12:57:07 2021-01-06 12:57:22 Imm/Inj Visit Nurse, [facility] Pob Immunizatio [facility] 1.84.114 350.1.13.10 4.2.7.2.686 [id number] [facility] 2020-11-10 09:15:00 2020-11-10 09:15:00 Outpatient Brian CADET JACKY [facility] [id number] [facility] 2020-11-10 08:43:55 2020-11-10 08:58:55 Office Visit Jacky Cadet [facility] 1..114 350.1.13.10 4.2.7.2.686 [id number] [facility] 2020-11-10 00:00:00 2020-11-10 00:00:00 Orders Only Doctor Unassigned, [place] [facility] 1.840.114 350.1.13.10 4.2.7.2.686 [id number] [facility] 2020-08-25 11:30:00 2020-08-25 11:30:00 Outpatient REGGIE MCDERMOTT MA[facility]ICE [facility] [id number] [facility] 2020-08-19 13:37:22 2020-08-19 13:52:22 Set Staff Fitter Visit [facility] Flakito Hilario [facility] 1..840.114 350.1.13.10 4.2.7.2.686 [id number] [facility] 2020-08-19 12:17:32 2020-08-19 13:17:32 Office Visit Sulaiman Flakito Hoda [facility] 1..840.114 350.1.13.10 4.2.7.2.686 [id number] [facility] 2020-08-19 13:00:00 2020-08-19 13:00:00 Outpatient FLAKITO ADRIAN [facility] [id number] [facility] 2020-07-07 10:00:00 2020-07-07 10:00:00 Outpatient JACKY LEONARD [facility] [id number] [facility] 2020-07-07 09:18:03 2020-07-07 09:33:03 Office Visit Jacky Cadet [facility] 1..840.114 350.1.13.10 4.2.7.2.686 [id number] [facility] 2020-04-01 12:00:00 2020-04-01 12:00:00 Outpatient KIMMIE MICHEL [facility] [id number] [facility] 2020-03-04 12:50:00 2020-03-04 12:50:00 Outpatient KIMMIE MICHEL [facility] [id number] [facility] 2020-03-03 09:15:00 2020-03-03 09:15:00 Outpatient JACKY LEONARD [facility] [id number] [facility] 2020-03-03 08:39:20 2020-03-03 08:54:20 Office Visit Helio Jacky [facility] 1.2.840.114 350.1.13.10 4.2.7.2.686 [id number] [facility] 2020-02-25 13:33:44 2020-02-25 14:12:41 Office Visit Reggie Mosqueda [facility] 1.2.840.114 350.1.13.10 4.2.7.2.686 [id number] [facility] 2020-02-25 13:40:00 2020-02-25 13:40:00 Outpatient R REGGIE MOSQUEDA [facility]ICE [facility] [id number] [facility] 2020-02-17 09:07:26 2020-02-17 11:21:00 Office Visit Gary Beltrán [facility] 1.2.840.114 350.1.13.10 4.2.7.2.686 [id number] [facility] 2020-02-17 09:52:45 2020-02-17 10:07:45 Set Staff Fitter Visit [facility] Gary Beltrán [facility] 1.2840.114 350.1.13.10 4.2.7.2.686 [id number] [facility] 2020-02-17 09:30:00 2020-02-17 09:30:00 Outpatient GARY MARI III [facility] [id number] [facility] 2019-11-05 08:40:41 2019-11-05 14:58:19 Office Visit Anjana Cadetan [facility] [address] 1.2.840.114 350.1.13.10 4.2.7.2.686 [id number] [facility] 2019-11-05 09:15:00 2019-11-05 09:15:00 Outpatient R HELIOANJANAAN [facility] [id number] [facility] 2019-07-30 08:35:02 2019-11-05 09:12:32 Office Visit HelioAnjanaan [facility] [place] 1.2.840.114 350.1.13.10 4.2.7.2.686 [id number] [facility] 2019-11-05 00:00:00 2019-11-05 00:00:00 Orders Only Doctor Unassigned, [place] [facility] 1.2.840.114 350.1.13.10 4.2.7.2.686 [id number] [facility] 2019-08-26 00:00:00 2019-08-26 00:00:00 Telephone Reggie Mosqueda [facility] 1.2840.114 350.1.13.10 4.2.7.2.686 [id number] [facility] 2019-08-20 15:00:00 2019-08-20 15:00:00 Outpatient REGGIE MCDERMOTT [facility] [id number] [facility] 2019-08-20 14:00:18 2019-08-20 14:20:18 Telemedici ne Visit Reggie Mosqueda [facility] 1.2840.114 350.1.13.10 4.2.7.2.686 [id number] [facility] 2019-07-30 14:00:00 2019-07-30 14:00:00 Outpatient REGGIE MCDERMOTT [facility] [id number] [facility] 2019-07-30 09:30:00 2019-07-30 09:30:00 Outpatient JACKY LEONARD [facility] [id number] [facility] 2019-05-01 09:15:00 2019-05-01 09:15:00 Outpatient R JACKY CADET [facility] [id number] [facility] 2019-05-01 07:11:39 2019-05-01 07:26:39 Telemedici ne Visit Helio [facility] 1.2840.114 350.1.13.10 4.2.7.2.686 [id number] [facility] 2019-04-24 08:34:00 2019-04-24 23:59:00 Hospital Encounter Helio [facility] 1.840.114 350.1.13.10 4.2.7.2.686 [id number] [facility] 2019-04-24 08:33:00 2019-04-24 08:33:00 [facility] 1.840.114 350.1.13.10 4.2.7.2.686 [id number] [facility] 2019-04-24 00:00:00 2019-04-24 00:00:00 Outpatient R JACKY CADET [facility] [id number] [facility] 2019-02-18 13:23:33 2019-03-07 07:38:05 Office Visit Gary Beltrán [facility] 1..114 350.1.13.10 4.2.7.2.686 [id number] [facility] 2019-02-18 00:00:00 2019-02-18 00:00:00 Orders Only Doctor Unassigned, [place] [facility] 1.840.114 350.1.13.10 4.2.7.2.686 [id number] [facility]
--- NOTE | 2023-01-29 10:15 | EDPHYS ---
Physician Documentation [facility] Name: Tam Randle Age: 72 yrs Sex: Male : 1950 Arrival Date: 01/29/2023 Time: 09:28 Bed DIS3 Private MD: ED Physician Luigi Amin HPI: 01/29 10:00 This 72 yrs old Male presents to ER via Ambulatory with complaints of Staple Removal. cp 10:00 The patient has chava on the scalp. Previous treatment: The patient was initially cp treated on January 21, 2023, the care was rendered at [facility]. Sutures/chava progress: The patient has no c/o's. The wound is well-healing with no redness, swelling, discharge, or dehiscence reported. Historical: - Allergies: 09:48 No Known Allergies; jl7 - Home Meds: 09:48 aspirin 81 mg Oral capsule [Active]; jl7 - PMHx: 09:48 Hypertension; jl7 - Immunization history:: Adult Immunizations up to date. - Social history:: Smoking status: Patient/guardian denies using tobacco. ROS: 10:02 All other systems are negative, cp Exam: 10:05 Head/face: Noted is multiple chava in place from several wounds. wounds appear to be cp well healed with no erythema, swelling and no drainage noted. 10:05 Cardiovascular: Rate: bradycardic, Rhythm: regular, cp 10:05 Respiratory: the patient does not display signs of respiratory distress, Respirations: normal, no use of accessory muscles, labored breathing, is not present, 10:05 Abdomen/GI: Inspection: abdomen appears normal, 10:05 Neuro: Motor: moves all fours, strength is normal, Gait: is steady, Vital Signs: 09:47 BP 141 / 84; Pulse 58; Resp 17; Temp 97.7; Pulse Ox 100% ; Pain 0/10; jl7 09:47 Pain Scale: Adult jl7 Procedures: 10:10 Suture/Staple removal: Removed 25 chava, from scalp, site appears well healed, cp Patient tolerated well. MDM: 09:59 Patient medically screened. cp 10:15 Data reviewed: vital signs, nurses notes, and as a result, I will discharge patient. cp 10:15 Counseling: I had a detailed discussion with the patient and/or guardian regarding the cp historical points, exam findings, and any diagnostic results supporting the discharge/admit diagnosis, to return to the emergency department if symptoms worsen or persist or if there are any questions or concerns that arise at home. Response to treatment: the patient's symptoms have markedly improved after treatment, and as a result, I will discharge patient. Administered Medications: No medications were administered Disposition: 10:34 Co-signature as Attending Physician, Luigi Amin MD I reviewed the patient's care rt provided by the Advanced Practice Provider and agree with the diagnosis and treatment plan. Disposition Summary: 01/29/23 10:15 Discharge Ordered Notes: Location: Home cp Problem: new cp Symptoms: have improved cp Condition: Stable cp Diagnosis - Encounter for removal of sutures - staple removal cp Followup: cp - With: Private Physician - When: As needed - Reason: Worsening of condition Discharge Instructions: - Discharge Summary Sheet cp - Sutures, Chava, or Adhesive Wound Closure cp - Suture Removal, Care After cp Forms: - Medication Reconciliation Form cp - Thank You Letter cp - Antibiotic Education cp - Prescription Opioid Use cp - Patient Portal Instructions cp - Leadership Thank You Letter cp Signatures: Abbe Addison PA PA cp Neli Wagner RN RN jl7 Luigi Amin MD MD rt
--- NOTE | 2023-01-29 10:15 | ER ---
Nurse's Notes [facility] Name: Tam Randle Age: 72 yrs Sex: Male : 1950 Arrival Date: 01/29/2023 Time: 09:28 Bed DIS3 Private MD: Diagnosis: Encounter for removal of sutures-staple removal Presentation: 01/29 09:47 Chief complaint: Patient states: Needs kathi to right parietal area taken out. jl7 Coronavirus screen: At this time, the client does not indicate any symptoms associated with coronavirus-19. Ebola Screen: No symptoms or risks identified at this time. Initial Sepsis Screen: Does the patient meet any 2 criteria? No. Patient's initial sepsis screen is negative. Does the patient have a suspected source of infection? No. Patient's initial sepsis screen is negative. Risk Assessment: Do you want to hurt yourself or someone else? Patient reports no desire to harm self or others. Onset of symptoms is unknown. 09:47 Method Of Arrival: Ambulatory jl7 09:47 Acuity: DRE 5 jl7 Triage Assessment: 09:48 General: Appears in no apparent distress. comfortable, Behavior is calm, cooperative, jl7 appropriate for age. Pain: Denies pain. Historical: - Allergies: 09:48 No Known Allergies; jl7 - Home Meds: 09:48 aspirin 81 mg Oral capsule [Active]; jl7 - PMHx: 09:48 Hypertension; jl7 - Immunization history:: Adult Immunizations up to date. - Social history:: Smoking status: Patient/guardian denies using tobacco. Vital Signs: 09:47 BP 141 / 84; Pulse 58; Resp 17; Temp 97.7; Pulse Ox 100% ; Pain 0/10; jl7 09:47 Pain Scale: Adult jl7 ED Course: 09:30 Patient arrived in ED. im 09:38 Abbe Addison PA is PHCP. cp 09:38 Luigi Amin MD is Attending Physician. cp 09:48 Triage completed. jl7 09:48 Arm band placed on right wrist. jl7 10:20 No provider procedures requiring assistance completed. Patient did not have IV access jl7 during this emergency room visit. Administered Medications: No medications were administered Outcome: 10:15 Discharge ordered by MD. cp 10:20 Discharged to home ambulatory, jl7 10:20 Condition: stable 10:20 Discharge instructions given to patient, Instructed on discharge instructions, follow up and referral plans. Demonstrated understanding of instructions, follow-up care, 10:20 Patient left the ED. jl7 Signatures: Abbe Addison PA PA cp Leal, Jahala, RN RN jl7 Fadumo Cobos
[2023-01-29 10:48] VITALS: BP 141/84; TEMP 97.7; O2SAT 100
== END ==
LOC: ER 09:28
DX: Z48.02 Encounter for removal of sutures (principal)
CPT/HCPCS: 99282

== ENCOUNTER 2023-05-30 10:30 | Emergency (ER) | payer MEDICARE, OTHER ==
--- NOTE | 2023-05-30 11:51 | RAD REPORT ---
EXAM DESCRIPTION: CT - Head Brain Wo Cont - 05/30/2023 10:59 am CLINICAL HISTORY: head trauma COMPARISON: Head C Spine Mpr Wo Con dated 01/20/2023 TECHNIQUE: Noncontrast head CT images were obtained without IV contrast. Multiplanar reformats were generated and reviewed. All CT scans are performed using dose optimization technique as appropriate and may include automated exposure control or mA/KV adjustment according to patient size. FINDINGS: No intracranial hemorrhage, mass, or edema. Midline structures are unremarkable. Moderate diffuse parenchymal volume loss. Patchy periventricular and deep white matter hypoattenuation, nonspecific, but suggestive of sequelae of chronic small vessel ischemic changes. Findings are stable. Rosales-white matter differentiation is preserved, without evidence of acute infarct. No abnormal extra- axial fluid collections. Mastoid air cells and visualized portions of the paranasal sinuses are clear. No acute bony findings. IMPRESSION: No evidence of an acute intracranial process. Stable chronic findings as above.
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
[2023-05-30 12:55] VITALS: BP 135/82; TEMP 98; O2SAT 99
== END 2023-05-30 12:43 | disposition home or self-care (01) ==
LOC: ER 10:30
DX: S00.81XA Abrasion of other part of head, initial encounter (principal); Y04.8XXA Assault by other bodily force, initial encounter; I10 Essential (primary) hypertension
CPT/HCPCS: 70450